=== PATIENT | female | born 1975 | race African-American/Black ===

== ENCOUNTER 2016-09-07 14:05 | Emergency (ER) | payer BC ==
[~2016-09-07] VITALS: Ht 157.5 cm; Wt 106.6 kg
[2016-09-07] MEDS ORDERED: ALBUTEROL SULFATE 2.5 MG/3 ML NEBU. NEB ONE (15:30)
--- NOTE | 2016-09-07 15:34 | PHYS DOC ---
Past Medical History Past Medical History: Hypertension Past Surgical History: Hysterectomy, Tonsillectomy, Tubal ligation Additional Information: nonsmoker Alcohol Use: Occasionally Drug Use: None Adult General Chief Complaint Chief Complaint: COUGH HPI HPI Patient is a 41 year old female who presents with productive cough and shortness of breath for 6 days. She also reports nasal drainage and myalgias. She denies fever, sore throat, or otalgia. She did not receive a flu shot this year. She denies any known sick contacts. Her PCP is Dr. Morales. Review of Systems Review of Systems Constitutional: Denies fever or chills. [] Eyes: Denies change in visual acuity, redness, or eye pain. [] HENT: Denies ear pain or sore throat. Reports nasal congestion. Respiratory: Reports productive cough and shortness of breath. Cardiovascular: Denies chest pain, palpitations or edema. [] Musculoskeletal: Denies back pain or joint pain. Reports diffuse myalgias. Integument: Denies rash or skin lesions. [] Neurologic: Denies headache, focal weakness or sensory changes. [] Current Medications Current Medications Current Medications Medications (Trade) Dose Ordered Sig/Felix Start Time Stop Time Status Last Admin Dose Admin Albuterol Sulfate (Ventolin Neb Soln) 2.5 mg 1X ONCE 09/07/16 15:30 09/07/16 15:31 DC 09/07/16 15:47 2.5 MG Allergies Allergies Allergies Coded Allergies Type Severity Reaction Last Updated Verified No Known Drug Allergies 09/07/16 No Physical Exam Physical Exam Constitutional: Well developed, well nourished, no acute distress, non-toxic appearance. [] HENT: Normocephalic, atraumatic, bilateral external ears normal, oropharynx moist, no oral exudates, nose normal. Bilateral TMs without erythema or bulging. There is no posterior pharyngeal erythema or tonsillar edema. Bilateral nasal turbinates are swollen and erythematous with purulent drainage. Eyes: PERRLA, EOMI, conjunctiva normal, no discharge. [] Neck: Normal range of motion, no tenderness, supple, no stridor. [] Cardiovascular: Heart rate regular rhythm, no murmur [] Lungs & Thorax: Bilateral breath sounds clear to auscultation without wheezes, rales, or rhonchi. Skin: Warm, dry, no erythema, no rash. [] Neurologic: Alert and oriented X 3, normal motor function, normal sensory function, no focal deficits noted. [] Psychologic: Affect normal, judgement normal, mood normal. [] Current Patient Data Vital Signs Vital Signs Date Time Temp Pulse Resp B/P Pulse Ox O2 Delivery O2 Flow Rate FiO2 09/07/16 15:47 97 Room Air 09/07/16 15:11 98.3 101 24 98.3 Lab Values Laboratory Tests Test 09/07/16 15:30 Influenza Type A Antigen Negative (NEGATIVE) Influenza Type B Antigen Negative (NEGATIVE) EKG EKG [] Radiology/Procedures Radiology/Procedures [] Course & Med Decision Making Course & Med Decision Making Pertinent Labs and Imaging studies reviewed. (See chart for details) [] Dragon Disclaimer Dragon Disclaimer This electronic medical record was generated, in whole or in part, using a voice recognition dictation system. Departure Departure Impression: Primary Impression: Bronchitis Disposition: HOME, SELF-CARE Condition: STABLE Referrals: TERESA WALLACE MD (PCP) Patient Instructions: Acute Bronchitis, [id number] Additional Instructions: Your flu swab today was negative. Your lungs were clear also. Please complete all the prescribed steroids, even if you are feeling better. Please use the prescribed inhaler as needed for cough or shortness of breath. Do not use more often than directed. Please follow-up with your primary care provider in the next 3-4 days. Return to emergency department if you have any new or concerning symptoms. Scripts Benzonatate 200 Mg Capsule1 Cap PO TID #30 CAP Prov:MEAGAN LEIVA 09/07/16 Prednisone 20 Mg [id number] Mg PO DAILY 5 Days Prov:MEAGAN LEIVA 09/07/16 Albuterol Sulfate (Proair Hfa Inhaler)8.5 Gm [id number] Puff INH Q4HRS PRN SHORTNESS OF BREATH #1 INHALER Prov:MEAGAN LEIVA 09/07/16 MEAGAN LEIVA Sep 07, 2016 15:34
[2016-09-07 16:13] LABS: OBC FLU VALID
[2016-09-07] MEDS ORDERED: PROAIR HFA8.5 GM INH (16:20)
[2016-09-07] MEDS ORDERED: PRED20TA PO (16:20)
[2016-09-07] MEDS ORDERED: BENZ200C39 PO (16:20)
[2016-09-07 16:32] VITALS: BP 193/87
== END 2016-09-07 16:33 | disposition home or self-care (01) ==
LOC: ER 14:05
DX: J40 Bronchitis, not specified as acute or chronic (principal); I10 Essential (primary) hypertension; Z90.710 Acquired absence of both cervix and uterus; Z98.51 Tubal ligation status
CPT/HCPCS: 87804; 94250; 94640; 99284

== ENCOUNTER 2017-12-29 11:13 | Emergency (ER) | payer OTHER | END 2017-12-29 12:31 | disposition home or self-care (01) | LOC: ER 12:31 | DX: H66.93 Otitis media, unspecified, bilateral (principal); R05 Cough; I10 Essential (primary) hypertension; Z98.51 Tubal ligation status; Z90.710 Acquired absence of both cervix and uterus | CPT/HCPCS: 99283 ==

== ENCOUNTER 2018-07-24 07:50 | Emergency (ER) | payer OTHER ==
[~2018-07-24] VITALS: Ht 160 cm; Wt 90.7 kg
[~2018-07-24 07:50] MED LIST: ALBU2.5V8 INH; AMOX875T PO; BENZ200C47 PO; PRED20TA PO; TRAM50TA PO
[2018-07-24] MEDS ORDERED: TETRACAINE 0.5% OPHTH SOLUTION 4ML BOTTLE. OS ONE (08:15)
[2018-07-24] MEDS ORDERED: FLUORESCEIN OPHTH TEST STRIP. OS ONE (08:15)
[2018-07-24] MEDS ORDERED: PROPARACAINE/FLUORESCEIN 0.5 ML OPHTH DROPS. OS ONE (08:15)
--- NOTE | 2018-07-24 08:24 | PHYS DOC ---
Past Medical History Past Medical History: Hypertension Past Surgical History: Hysterectomy, Tonsillectomy, Tubal ligation Alcohol Use: Occasionally Drug Use: None Adult General Chief Complaint Chief Complaint: EYE PROBLEMS HPI HPI Patient is a 43 year old female with complaining of left eye pain since yesterday as a constant pain with headache without change of vision. Patient complaining of September discharged this morning and redness of her eye. Patient states she used to wear contact lenses but did not use any contact lenses for several months. Patient denies injury, vomiting, history of the same problem. Review of Systems Review of Systems Constitutional: Denies fever or chills [] Eyes: Denies change in visual acuity, reports redness, eye pain [] HENT: Denies nasal congestion or sore throat [] Respiratory: Denies cough or shortness of breath [] Cardiovascular: No additional information not addressed in HPI [] GI: Denies abdominal pain, nausea, vomiting, bloody stools or diarrhea [] : Denies dysuria or hematuria [] Musculoskeletal: Denies back pain or joint pain [] Integument: Denies rash or skin lesions [] Neurologic: Denies headache, focal weakness or sensory changes [] Endocrine: Denies polyuria or polydipsia [] All other systems were reviewed and found to be within normal limits, except as documented in this note. Current Medications Current Medications Current Medications Medications (Trade) Dose Ordered Sig/Felix Start Time Stop Time Status Last Admin Dose Admin Clonidine HCl (Catapres) 0.1 mg 1X ONCE 07/24/18 09:00 07/24/18 09:01 DC 07/24/18 09:01 0.1 MG Fluorescein Sodium (Ful-Gloria) 1 strip 1X ONCE 07/24/18 08:15 07/24/18 08:16 UNV Proparacaine HCl/ Fluorescein Sodium (Flucaine Eye Drops) 1 drop 1X ONCE 07/24/18 08:15 07/24/18 08:16 DC 07/24/18 08:44 1 DROP Tetracaine HCl (Tetracaine) 1 drop 1X ONCE 07/24/18 08:15 07/24/18 08:16 UNV Allergies Allergies Allergies Coded Allergies Type Severity Reaction Last Updated Verified No Known Drug Allergies 07/24/18 No Physical Exam Physical Exam Constitutional: Well developed, well nourished, mild distress, non-toxic appearance. [] HENT: Normocephalic, atraumatic Eyes: PERRLA, EOMI, left conjunctival erythema with marked discharge, patient of 8 in left eye Neck: Normal range of motion, no tenderness, supple, no stridor. [] Cardiovascular:Heart rate regular rhythm, no murmur [] Lungs & Thorax: Bilateral breath sounds clear to auscultation [] Extremities: No tenderness, no cyanosis, no clubbing, ROM intact, no edema. [] Neurologic: Alert and oriented X 3, normal motor function, normal sensory function, no focal deficits noted. [] Psychologic: Affect normal, judgement normal, mood normal. [] Current Patient Data Vital Signs Vital Signs Date Time Temp Pulse Resp B/P (MAP) Pulse Ox O2 Delivery O2 Flow Rate FiO2 07/24/18 09:01 78 193/106 07/24/18 07:52 98.0 20 98 Room Air 98.0 EKG EKG [] Radiology/Procedures Radiology/Procedures [] Course & Med Decision Making Course & Med Decision Making Evaluation of patient in ER showed 43-year-old female patient with complaining of left eye pain since yesterday. Patient had unremarkable exam without uptake of fluorescein and normal pressure of left eye. Plan to discharge patient home with diagnose of left eye conjunctivitis. Patient had blood pressure of 190s at arrival to ER with history of hypertension and not taking medication for more than one year. Repeat blood pressure was still elevated and patient treated with clonidine and prescription for lisinopril was given. Dragon Disclaimer Dragon Disclaimer This electronic medical record was generated, in whole or in part, using a voice recognition dictation system. Departure Departure Impression: Primary Impression: Acute conjunctivitis, left eye Additional Impression: Uncontrolled hypertension Disposition: 01 HOME, SELF-CARE (at 0834) Condition: IMPROVED Referrals: NO PCP (PCP) Patient Instructions: Bacterial Conjunctivitis, Form - Blood Pressure Record Sheet, How to Take Your Blood Pressure, [id number], Managing Your High Blood Pressure Additional Instructions: Follow-up with donor services specialist in 2 days Return to ER if not getting better Follow-up with your primary care physician in 2 or 3 days regarding elevation of blood pressure Scripts Lisinopril (LISINOPRIL) 10 Mg Tablet 1 TAB PO DAILY, #30 TAB 0 Refills Prov: LESVIA BRIAN MD 07/24/18 Tramadol Hcl (ULTRAM) 50 Mg Tablet 50 MG PO Q6HRS PRN for PAIN, #14 TAB 0 Refills Prov: LESVIA BRIAN MD 07/24/18 Igor/Polymyx B Sulf/Dexameth (MAXITROL EYE DROPS) 5 Ml Drops.susp 2 DROP OS QID for 7 Days, #5 ML Prov: LESVIA BRIAN MD 07/24/18 Problem Qualifiers LESVIA BRIAN MD Jul 24, 2018 08:24
[2018-07-24] MEDS ORDERED: NEO/5DRO OS (08:37)
[2018-07-24] MEDS ORDERED: TRAM-48 PO (08:45)
[2018-07-24] MEDS ORDERED: LISI10TA2 PO (08:57)
[2018-07-24] MEDS ORDERED: cloNIDine HCL 0.1 MG TABLET PO ONE (09:00)
[2018-07-24 09:01] VITALS: BP 193/106
== END 2018-07-24 09:05 | disposition home or self-care (01) ==
LOC: ER 07:50
DX: H10.32 Unspecified acute conjunctivitis, left eye (principal); I10 Essential (primary) hypertension; Z90.710 Acquired absence of both cervix and uterus
CPT/HCPCS: 99283

== ENCOUNTER 2018-11-25 08:03 | Emergency (ER) | payer OTHER ==
[~2018-11-25] VITALS: Ht 160 cm; Wt 90.7 kg
[~2018-11-25 08:03] MED LIST changes: +LISI10TA2 PO; +NEO/5DRO OS; +TRAM-48 PO
[2018-11-25] MEDS ORDERED: ONDANSETRON PF 4 MG/2 ML VIAL. IV ONE (08:30)
[2018-11-25] MEDS ORDERED: hydrALAZINE 20 MG/ML VIAL. IVP ONE (08:30)
[2018-11-25] MEDS ORDERED: IV NORMAL SALINE 1000ML BAG 1,000 ML IV ONE (08:30)
--- NOTE | 2018-11-25 08:38 | PHYS DOC ---
Past Medical History Past Medical History: Hypertension Past Surgical History: Hysterectomy, Tonsillectomy, Tubal ligation Alcohol Use: Occasionally Drug Use: None Adult General Chief Complaint Chief Complaint: SORE THROAT HPI HPI Patient is a 43 year old F who presents with sore throat, body aches and vomiting. Pt brings with her a red cup full of vomit. She states that the vomiting has been on ongoing problem for several months and her doctor is not sure what is causing it. She has had a prior hysterectomy. She denies abdominal pain, except for when she is vomiting and it hurts in her epigastric region. Pt is noted to be very hypertensive on arrival, as well as tachycardic. She did not take her blood pressure medicine yet today. Hydralazine was ordered but when nurse went to give it, pt's BP was greatly improved so it was held. Review of Systems Review of Systems Constitutional: Reports chills HENT: Reports nasal congestion and sore throat Respiratory: Denies cough or shortness of breath Cardiovascular: Denies chest pain GI: Denies abdominal pain. Reports nausea and vomiting. Musculoskeletal: Denies back pain or joint pain. Reports myalgias. Integument: Denies rash or skin lesions Neurologic: Denies headache, focal weakness or sensory changes All other systems were reviewed and found to be within normal limits, except as documented in this note. Current Medications Current Medications Current Medications Medications (Trade) Dose Ordered Sig/Felix Start Time Stop Time Status Last Admin Dose Admin Hydralazine HCl (Apresoline Inj) 10 mg 1X ONCE 11/25/18 08:30 11/25/18 09:06 DC Ondansetron HCl (Zofran) 4 mg 1X ONCE 11/25/18 08:30 11/25/18 08:31 DC 11/25/18 08:46 4 MG Sodium Chloride 1,000 ml @ 1,000 mls/hr 1X ONCE 11/25/18 08:30 11/25/18 09:29 DC 11/25/18 08:46 1,000 MLS/HR Allergies Allergies Allergies Coded Allergies Type Severity Reaction Last Updated Verified No Known Drug Allergies 07/24/18 No Physical Exam Physical Exam Constitutional: Well developed, well nourished, no acute distress, non-toxic appearance. HENT: Normocephalic, atraumatic, bilateral external ears normal. Oropharynx is erythematous and tender. Clear nasal congestion. Eyes: PERRLA, EOMI, conjunctiva normal, no discharge. Neck: Normal range of motion, no tenderness, supple, no stridor. Cardiovascular:Heart rate regular rhythm, no murmur Lungs & Thorax: Bilateral breath sounds clear to auscultation Abdomen: Bowel sounds normal, soft, no tenderness, no masses, no pulsatile masses. Skin: Warm, dry, no erythema, no rash. Back: No tenderness, no CVA tenderness. Extremities: No tenderness, no cyanosis, no clubbing, ROM intact, no edema. Neurologic: Alert and oriented X 3, normal motor function, normal sensory function, no focal deficits noted. Psychologic: Affect normal, judgement normal, mood normal. Current Patient Data Vital Signs Vital Signs Date Time Temp Pulse Resp B/P (MAP) Pulse Ox O2 Delivery O2 Flow Rate FiO2 11/25/18 10:20 102 20 140/74 (96) 96 Room Air 11/25/18 08:26 98.1 98.1 Lab Values Laboratory Tests Test 11/25/18 08:14 11/25/18 08:45 Group A Streptococcus Rapid Positive (NEGATIVE) White Blood Count 13.9 x10^3/uL (4.0-11.0) H Red Blood Count 4.29 x10^6/uL (3.50-5.40) Hemoglobin 13.8 g/dL (12.0-15.5) Hematocrit 40.4 % (36.0-47.0) Mean Corpuscular Volume 94 fL (79-100) Mean Corpuscular Hemoglobin 32 pg (25-35) Mean Corpuscular Hemoglobin Concent 34 g/dL (31-37) Red Cell Distribution Width 12.8 % (11.5-14.5) Platelet Count 294 x10^3/uL (140-400) Neutrophils (%) (Auto) 80 % (31-73) H Lymphocytes (%) (Auto) 10 % (24-48) L Monocytes (%) (Auto) 8 % (0-9) Eosinophils (%) (Auto) 2 % (0-3) Basophils (%) (Auto) 0 % (0-3) Neutrophils # (Auto) 11.1 x10^3uL (1.8-7.7) H Lymphocytes # (Auto) 1.4 x10^3/uL (1.0-4.8) Monocytes # (Auto) 1.0 x10^3/uL (0.0-1.1) Eosinophils # (Auto) 0.3 x10^3/uL (0.0-0.7) Basophils # (Auto) 0.0 x10^3/uL (0.0-0.2) Sodium Level 138 mmol/L (136-145) Potassium Level 3.5 mmol/L (3.5-5.1) Chloride Level 101 mmol/L (98-107) Carbon Dioxide Level 28 mmol/L (21-32) Anion Gap 9 (6-14) Blood Urea Nitrogen 10 mg/dL (7-20) Creatinine 1.0 mg/dL (0.6-1.0) Estimated GFR (Cockcroft-Gault) 73.2 BUN/Creatinine Ratio 10 (6-20) Glucose Level 119 mg/dL (70-99) H Calcium Level 9.2 mg/dL (8.5-10.1) Total Bilirubin 0.8 mg/dL (0.2-1.0) Aspartate Amino Transferase (AST) 41 U/L (15-37) H Alanine Aminotransferase (ALT) 56 U/L (14-59) Alkaline Phosphatase 86 U/L (46-116) Total Protein 8.1 g/dL (6.4-8.2) Albumin 3.3 g/dL (3.4-5.0) L Albumin/Globulin Ratio 0.7 (1.0-1.7) L Lipase 41 U/L (73-393) L Heterophil Agglutinins Negative (NEGATIVE) Laboratory Tests 11/25/18 08:45 Laboratory Tests 11/25/18 08:45 EKG EKG [] Radiology/Procedures Radiology/Procedures [] Course & Med Decision Making Course & Med Decision Making Pertinent Labs and Imaging studies reviewed. (See chart for details) Pt had labs done due to vomiting and tachycardia. IV fluids and zofran given and pt feeling better. Her pulse down and blood pressure came down without interve ntion. Nurse did bedside rapid strep which was reported as positive. It was then sent to lab and they reported it as negative. ??? Pt has leukocytosis and red inflamed oropharynx so will treat as strep at this time. I have also recommended close f/u with GI since she is reporting frequent vomiting even before becoming ill. Name provided for Dr. Brian. Pt to return if symptoms worsen at anytime. Dragon Disclaimer Dragon Disclaimer This electronic medical record was generated, in whole or in part, using a voice recognition dictation system. Departure Departure Impression: Primary Impression: Strep throat Additional Impression: Vomiting Disposition: HOME, SELF-CARE Condition: IMPROVED Referrals: NO PCP (PCP) COSMO BRIAN MD Patient Instructions: Nausea and Vomiting, [id number], Strep Throat, [id number] Additional Instructions: Push fluids and rest. With reports of several months of daily vomiting, you need to be see by a GI d octor. Dr. Brian is listed and is a local GI doctor. Scripts Ondansetron Hcl (ZOFRAN) 4 Mg Tablet 1 TAB PO Q6HRS, #20 TAB Prov: MATEO KENDRICK 11/25/18 Amoxicillin (AMOXICILLIN) 500 Mg Capsule 1 CAP PO TID, #30 CAP Prov: MATEO KENDRICK 11/25/18 Problem Qualifiers MATEO KENDRICK Nov 25, 2018 08:38
[2018-11-25 09:02] LABS: BASO % 0 % (0-3); EOS # 0.3 x10^3/uL (0.0-0.7); EOS % 2 % (0-3); HEMATOCRIT 40.4 % (36.0-47.0); HEMOGLOBIN 13.8 g/dL (12.0-15.5); LYMPH # 1.4 x10^3/uL (1.0-4.8); LYMPH % 10 % (24-48); MEAN CORPUSCULAR HEMOGLOBIN 32 pg (25-35); MEAN CORPUSCULAR HGB CONC 34 g/dL (31-37); MEAN CORPUSCULAR VOLUME 94 fL (79-100); MONO % 8 % (0-9); NEUT # 11.1 x10^3uL (1.8-7.7); NEUT % 80 % (31-73); PLATELET COUNT 294 x10^3/uL (140-400); RED BLOOD COUNT 4.29 x10^6/uL (3.50-5.40); RED CELL DISTRIBUTION WIDTH 12.8 % (11.5-14.5); WHITE BLOOD COUNT 13.9 x10^3/uL (4.0-11.0)
[2018-11-25 09:11] LABS: CALCIUM 9.2 mg/dL (8.5-10.1); GFR 73.2; POTASSIUM 3.5 mmol/L (3.5-5.1)
[2018-11-25 09:17] LABS: ALBUMIN 3.3 g/dL (3.4-5.0); ALBUMIN/GLOBULIN RATIO 0.7 (1.0-1.7); TOTAL BILIRUBIN 0.8 mg/dL (0.2-1.0); TOTAL PROTEIN 8.1 g/dL (6.4-8.2)
[2018-11-25 09:20] LABS: MONONUCLEOSIS PATIENT NEGATIVE (NEGATIVE)
[2018-11-25] MEDS ORDERED: AMOX500C PO (09:59)
[2018-11-25] MEDS ORDERED: ONDA4TAB7 PO (09:59)
[2018-11-25 10:20] VITALS: BP 140/74
== END 2018-11-25 10:22 | disposition home or self-care (01) ==
LOC: ER 08:03
DX: J02.0 Streptococcal pharyngitis (principal); B95.5 Unspecified streptococcus as the cause of diseases classified elsewhere; R11.2 Nausea with vomiting, unspecified; R00.0 Tachycardia, unspecified; M79.18 Myalgia, other site; I10 Essential (primary) hypertension; Z90.89 Acquired absence of other organs; Z98.51 Tubal ligation status; Z90.710 Acquired absence of both cervix and uterus
CPT/HCPCS: 36415; 80053; 83690; 85025; 86308; 87880; 96361; 96374; 99284; J2405; J7030

== ENCOUNTER 2019-03-20 15:45 | Inpatient (IN) | payer OTHER ==
[~2019-03-20] VITALS: Ht 157.5 cm; Wt 139.0 kg
[~2019-03-20 15:45] MED LIST changes: +AMOX500C PO; +ONDA4TAB7 PO
[2019-03-20] MEDS ORDERED: ALBUTEROL SULFATE 2.5 MG/3 ML NEBU. NEB ONE (16:15)
[2019-03-20] MEDS ORDERED: PROCHLORPERAZINE 10 MG/2 ML VIAL. IV ONE (16:15)
[2019-03-20] MEDS ORDERED: KETOROLAC 30 MG/ML VIAL. IV ONE (16:15)
--- NOTE | 2019-03-20 16:15 | PHYS DOC ---
Past Medical History Past Medical History: Hypertension (YAMILETH DIAZ APRN) Past Surgical History: Hysterectomy, Tonsillectomy, Tubal ligation (YAMILETH DIAZ APRN) Alcohol Use: Occasionally Drug Use: None (YAMILETH DIAZ APRN) Adult General Chief Complaint Chief Complaint: SHORTNESS OF BREATH HPI HPI Patient is a 43 year old female who presents with 1 week of shortness of breat h, left chest heaviness and tightness with slight sharpness felt in the left chest with a deep breath. Patient states she also has blurriness in her vision, dizziness and the worse headache she's ever felt. Patient states that she tried taking Aleve but is not helping. Patient states she took a breathing treatment at home with albuterol and is feeling no better. Patient has not recently been on steroids. Patient states she was on amoxicillin 3 months ago for bronchitis and she's had bronchitis couple times but states this feels different. Ambulatory with a steady gait. The only medicine she is on his lisinopril for hypertension. She rates her headache pain an 8 out of 10. (YAMILETH DIAZ APRN) Review of Systems Review of Systems Constitutional: Denies fever or chills [] Eyes: Denies change in visual acuity, redness, or eye pain. Blurred vision[] HENT: Denies nasal congestion or sore throat [] Respiratory: Denies cough or shortness of breath [] Cardiovascular: Left chest sharpness with inspiration, heaviness, tightness GI: Denies abdominal pain, nausea, vomiting, bloody stools or diarrhea [] : Denies dysuria or hematuria [] Musculoskeletal: Denies back pain or joint pain [] Integument: Denies rash or skin lesions [] Neurologic: headache, dizziness, focal weakness or sensory changes [] Endocrine: Denies polyuria or polydipsia [] All other systems were reviewed and found to be within normal limits, except as documented in this note. (YAMILETH DIAZ APRN) Current Medications Current Medications Current Medications Medications (Trade) Dose Ordered Sig/Felix Start Time Stop Time Status Last Admin Dose Admin Albuterol Sulfate (Ventolin Neb Soln) 2.5 mg 1X ONCE 03/20/19 16:15 03/20/19 16:16 DC 03/20/19 16:29 2.5 MG Aspirin ([place] Aspirin) 325 mg 1X ONCE 03/20/19 17:45 03/20/19 17:46 DC 03/20/19 18:01 325 MG Ketorolac Tromethamine (Toradol 30mg Vial) 30 mg 1X ONCE 03/20/19 16:15 03/20/19 16:16 DC 03/20/19 17:06 30 MG Prochlorperazine Edisylate (Compazine) 10 mg 1X ONCE 03/20/19 16:15 03/20/19 16:16 DC 03/20/19 17:06 10 MG Sodium Chloride 1,000 ml @ 1,000 mls/hr 1X ONCE 03/20/19 17:30 03/20/19 18:29 DC 03/20/19 17:53 1,000 MLS/HR (BRUCE CASTRO MD) Allergies Allergies Allergies Coded Allergies Type Severity Reaction Last Updated Verified No Known Drug Allergies 07/24/18 No (BRUCE CASTRO MD) Physical Exam Physical Exam Constitutional: Well developed, well nourished, no acute distress, non-toxic appearance. [] Eyes: PERRLA, EOMI, conjunctiva normal, no discharge. [] Cardiovascular:Heart rate regular rhythm, no murmur, hypertensive [] Lungs & Thorax: Bilateral breath sounds clear to auscultation [] Abdomen: Bowel sounds normal, soft, no tenderness, no masses, no pulsatile masses. [] Skin: Warm, dry, no erythema, no rash. [] Back: No tenderness, no CVA tenderness. [] Extremities: No tenderness, no cyanosis, no clubbing, ROM intact, no edema. [] Neurologic: Alert and oriented X 3, normal motor function, normal sensory function, no focal deficits noted. [] Psychologic: Affect normal, judgement normal, mood normal. [] (YAMILETH DIAZ APRN) Current Patient Data Vital Signs Vital Signs Date Time Temp Pulse Resp B/P (MAP) Pulse Ox O2 Delivery O2 Flow Rate FiO2 03/20/19 19:18 100 24 215/95 (135) 99 Room Air 03/20/19 15:49 98.3 98.3 (BRUCE CASTRO MD) Lab Values Laboratory Tests Test 03/20/19 15:52 03/20/19 15:57 03/20/19 16:45 03/20/19 18:38 Urine Collection Type Unknown Urine Color Yellow Urine Clarity Clear Urine pH 5.0 Urine Specific [place] 1.025 Urine Protein Negative mg/dL (NEG-TRACE) Urine Glucose (UA) Negative mg/dL (NEG) Urine Ketones (Stick) Negative mg/dL (NEG) Urine Blood Trace (NEG) Urine Nitrite Negative (NEG) Urine Bilirubin Negative (NEG) Urine Urobilinogen Dipstick 1.0 mg/dL (0.2 mg/dL) Urine Leukocyte Esterase Negative (NEG) Urine RBC 3-5 /HPF (0-2) Urine WBC 1-4 /HPF (0-4) Urine Squamous Epithelial Cells Many /LPF Urine Bacteria Moderate /HPF (0-FEW) Urine Mucus Marked /LPF Urine Opiates Screen Neg (NEG) Urine Methadone Screen Neg (NEG) Urine Barbiturates Neg (NEG) Urine Phencyclidine Screen Neg (NEG) Urine Amphetamine/Methamphetamine Neg (NEG) Urine Benzodiazepines Screen Neg (NEG) Urine Cocaine Screen Neg (NEG) Urine Cannabinoids Screen Neg (NEG) Urine Ethyl Alcohol Neg (NEG) POC Urine HCG, Qualitative Hcg negative (Negative) White Blood Count 13.0 x10^3/uL (4.0-11.0) H Red Blood Count 4.48 x10^6/uL (3.50-5.40) Hemoglobin 14.4 g/dL (12.0-15.5) Hematocrit 41.7 % (36.0-47.0) Mean Corpuscular Volume 93 fL (79-100) Mean Corpuscular Hemoglobin 32 pg (25-35) Mean Corpuscular Hemoglobin Concent 34 g/dL (31-37) Red Cell Distribution Width 12.9 % (11.5-14.5) Platelet Count 346 x10^3/uL (140-400) Neutrophils (%) (Auto) 58 % (31-73) Lymphocytes (%) (Auto) 33 % (24-48) Monocytes (%) (Auto) 8 % (0-9) Eosinophils (%) (Auto) 1 % (0-3) Basophils (%) (Auto) 0 % (0-3) Neutrophils # (Auto) 7.6 x10^3/uL (1.8-7.7) Lymphocytes # (Auto) 4.2 x10^3/uL (1.0-4.8) Monocytes # (Auto) 1.1 x10^3/uL (0.0-1.1) Eosinophils # (Auto) 0.1 x10^3/uL (0.0-0.7) Basophils # (Auto) 0.0 x10^3/uL (0.0-0.2) D-Dimer (Bianka) 0.39 ug/mlFEU (0.00-0.50) Sodium Level 141 mmol/L (136-145) Potassium Level 3.9 mmol/L (3.5-5.1) Chloride Level 102 mmol/L (98-107) Carbon Dioxide Level 28 mmol/L (21-32) Anion Gap 11 (6-14) Blood Urea Nitrogen 15 mg/dL (7-20) Creatinine 1.1 mg/dL (0.6-1.0) H Estimated GFR (Cockcroft-Gault) 65.6 BUN/Creatinine Ratio 14 (6-20) Glucose Level 117 mg/dL (70-99) H Calcium Level 9.2 mg/dL (8.5-10.1) Total Bilirubin 0.3 mg/dL (0.2-1.0) Aspartate Amino Transferase (AST) 13 U/L (15-37) L Alanine Aminotransferase (ALT) 24 U/L (14-59) Alkaline Phosphatase 62 U/L (46-116) Troponin I Quantitative < 0.017 ng/mL (0.000-0.055) < 0.017 ng/mL (0.000-0.055) Total Protein 7.8 g/dL (6.4-8.2) Albumin 3.5 g/dL (3.4-5.0) Albumin/Globulin Ratio 0.8 (1.0-1.7) L Laboratory Tests 03/20/19 16:45 Laboratory Tests 03/20/19 16:45 (BRUCE CASTRO MD) EKG EKG SINUS TACHY AND NO STEMI[] Interpretation Time: [address] MINOR (YAMILETH DIAZ APRN) Radiology/Procedures Radiology/Procedures [] (YAMILETH DIAZ APRN) Impressions: [facility] [address] [place], [place] [id number] IMAGING REPORT Signed PATIENT: STEVE LINARES ACCOUNT: [id number] : 1975 LOCATION: ER AGE: 43 SEX: F EXAM STATUS: REG ER ORD. PHYSICIAN: YAMILETH DIAZ APRN REASON: soa PROCEDURE: CHEST PA & LATERAL PA and lateral views of the chest. Comparison: None. Indication: Shortness of air Findings: The heart size is enlarged. No pneumothorax or effusion. No air space or interstitial disease. The bony structures are intact. Impression: 1. No acute cardiopulmonary process. 2. Cardiomegaly. Electronically signed by: Demarco Bradford MD (03/20/2019 5:11 PM) [facility] DICTATED and SIGNED BY: DEMARCO BRADFORD MD DATE: 03/20/19 171 [facility] [address] [place] [address] IMAGING REPORT Signed PATIENT: STEVE LINARES ACCOUNT: [id number] : 1975 LOCATION: ER AGE: 43 SEX: F EXAM STATUS: REG ER ORD. PHYSICIAN: YAMILETH DIAZ APRN REASON: LIGHTHEADED /soa PROCEDURE: CT HEAD WO CONTRAST Exam: CT head INDICATION: Lightheadedness TECHNIQUE: Sequential axial images through the head were obtained without the administration of IV contrast. Comparisons: None FINDINGS: No focal parenchymal lesion or hemorrhage is identified. There is no midline shift or sulcal effacement. No acute vascular territory infarction is identified. Alford-white distinction is preserved. The ventricular system is within normal limits without compression hydrocephalus. The basal cisterns are well maintained. The visualized portions of the paranasal sinuses and mastoid air cells are well-pneumatized. No acute fractures. IMPRESSION: No acute intracranial abnormality. Exposure: One or more of the following in the visualized dose reduction techniques were utilized for this examination: 1. Automated exposure control 2. Adjustment of the MA and/or KV according to patient size Use of iterative of reconstructive technique Electronically signed by: Ashvin Musa MD (03/20/2019 5:33 PM) [facility] DICTATED and SIGNED BY: ASHVIN MUSA MD DATE: 03/20/19 5061 (YAMILETH DIAZ APRN) Course & Med Decision Making Course & Med Decision Making Patient is a 43 year old female who presents with 1 week of shortness of breath, left chest heaviness and tightness with slight sharpness felt in the left chest with a deep breath. Patient states she also has blurriness in her vision, dizziness and the worse headache she's ever felt. Patient states that she tried taking Aleve but is not helping. Patient states she took a breathing treatment at home with albuterol and is feeling no better. Patient has not recently been on steroids. Patient states she was on amoxicillin 3 months ago for bronchitis and she's had bronchitis couple times but states this feels different. Ambulatory with a steady gait. The only medicine she is on his lisinopril for hypertension. She rates her headache pain an 8 out of 10. Speaks in full clear sentences. Skin is pink warm and dry. PERRLA. Denies numbness or tingling, nausea, vomiting, diarrhea, fever, neck pain, weakness, syncope, falling or any injuries or diaphoresis. Patient states she does not smoke and only drinks occasionally and does no drugs. Patient states the only health history she has is hypertension of which she takes lisinopril for. Patient states she takes lisinopril once a day she did take it this morning. Patient is hypertensive here in the ED. no calf tenderness or extremity edema. Lungs are clear to auscultation all lobes. CT chest shows 1. No acute cardiopulmonary process. 2. Cardiomegaly. Blood work unremarkable. Patient states after breathing treatment her soa is better. Patient states after the Compazine and Toradol that the headache is down to a 6. Patient states that the Compazine is making her sleepy. Patient states she is still having chest pain. Patients blood pressure has some down to 170's. Vital signs remain normal. Respirations 20. Denies any new symptoms. CT shows no acute findings. I have discussed this patient with Dr. Minor and he states to repeat the troponin if it's negative can send her home. I have spoken to Dr. Hilton who states to repeat the troponin and if still negative to return follow up with her in clinic. Second EKG shows a slight change with nonspecific flattening in V3. EKG read and compared to first EKG by Dr Castro. Troponin remains negative. Patient's blood pressure however has jumped back up into 205 over 100s. Patient currently doesn't have any chest pain but has had it intermittently throughout her stay today. Patient continues to have headache at a 6 out of 10. As spoken to Dr. Castro concerning this patient and he has spoken to the patient himself. We agree the patient should be admitted for serial troponins and a cardiology consult. Patient also agrees to admission. I have spoken to Dr Hilton and patient to be admitted to the hospital. Cardiology is consulted. (YAMILETH DIAZ APRN) Course & Med Decision Making ARNAUD: I SAW THE PATIENT. RECURRENT PAIN IN ED, TIGHTNESS SQUEEZING COMING AND GOING. BP 203 ON MY EVAL. TROP NEG. EKG SECOND ONE LOOKS A LITTLE DIFFERENT. I RECOMMEND ADMIT. PT OBESE, POORLY CONTROLLED BP HEART SCORE AT LEAST A TWO. (BRUCE CASTRO MD) Dragon Disclaimer Dragon Disclaimer This electronic medical record was generated, in whole or in part, using a voice recognition dictation system. (YAMILETH DIAZ APRN) The HEART Score for CP Pts HEART Score for Chest Pain: HEART Score for Chest Pain Response (Comments) Value History Moderately Suspicious 1 ECG Normal 0 Age < 45 0 Risk Factors 1 or 2 Risk Factors 1 Troponin < Normal Limit 0 Total 2 Risk Factors: Risk Factors: DM, Current or recent (<one month) smoker, HTN, HLP, family history of CAD, obesity. Risk Scores: Score 0 - 3: 2.5% MACE over next 6 weeks - Discharge Home Score 4 - 6: 20.3% MACE over next 6 weeks - Admit for Clinical Observation Score 7 - 10: 72.7% MACE over next 6 weeks - Early Invasive Strategies (YAMILETH DIAZ APRN) NIHSS Stroke Scale NIH Stroke Scale: NIH Stroke Scale Response (Comments) Value Level of Consciousness: 0 Alert/Responsive 0 LOC Questions: 0 Answers both correctly 0 LOC Commands: 0 Performs both tasks 0 Best Gaze: 0 Normal 0 Visual: 0 No visual loss 0 Facial Palsy: 0 Normal, symmetrical 0 Motor - Left Arm 0 No drift 0 Motor - Right Arm 0 No drift 0 Motor - Left Leg 0 No drift 0 Motor: Right Leg 0 No drift 0 Limb Ataxia: 0 Absent 0 Sensory: 0 No loss 0 Best Language: 0 Normal 0 Dysathria: 0 Normal 0 Extinction and Inattention: 0 Normal 0 Total 0 Departure Departure Impression: Primary Impression: Chest pain Additional Impression: Hypertension Disposition: 09 ADMITTED INPATIENT Admitting Physician: Gloria Vargas (YAMILETH DIAZ APRN) Condition: STABLE Referrals: NO PCP (PCP) Attending Signature Attending Signature I have reviewed the PA/SAND CLEANING MACHINE OPERATOR's note and plan of care. I was available for consultation as needed during the patient's visit in the emergency department. I agree with the clinical impression, plan, and disposition. (KENYA MINOR DO) Attending Signature I have participated in the care of this patient and I have reviewed and agree with all pertinent clinical information above including history, exam, and recommendations. (BRUCE CASTRO MD) Problem Qualifiers Primary Impression: Chest pain Chest pain type: unspecified Qualified Codes: R07.9 - Chest pain, unspecified Additional Impression: Hypertension Hypertension type: essential hypertension Qualified Codes: I10 - Essential (primary) hypertension YAMILETH DIAZ APRN Mar 20, 2019 16:14 BRUCE CASTRO MD Mar 20, 2019 19:20 KENYA MINOR DO Mar 21, 2019 04:05
[2019-03-20 16:18] LABS: BILIRUBIN,URINE NEGATIVE (NEG); CLARITY,URINE CLEAR; COLOR,URINE YELLOW; NITRITE,URINE NEGATIVE (NEG); PROTEIN,URINE NEGATIVE (NEG-TRACE)
[2019-03-20 16:24] LABS: BARBITURATES NEG (NEG); BENZODIAZEPINES NEG (NEG); CANNABINOIDS NEG (NEG); COCAINE NEG (NEG); METHADONE NEG (NEG); OPIATES NEG (NEG); PHENCYCLIDINE NEG (NEG)
[2019-03-20 16:25] LABS: AMPHETAMINE/METHAMPHETAMINE NEG (NEG)
[2019-03-20 16:26] LABS: BACTERIA,URINE MODERATE /HPF (0-FEW); SQUAMOUS EPITHELIAL CELL,UR MANY /LPF
[2019-03-20 16:57] LABS: BASO % 0 % (0-3); EOS # 0.1 x10^3/uL (0.0-0.7); EOS % 1 % (0-3); HEMATOCRIT 41.7 % (36.0-47.0); HEMOGLOBIN 14.4 g/dL (12.0-15.5); LYMPH # 4.2 x10^3/uL (1.0-4.8); LYMPH % 33 % (24-48); MEAN CORPUSCULAR HEMOGLOBIN 32 pg (25-35); MEAN CORPUSCULAR HGB CONC 34 g/dL (31-37); MEAN CORPUSCULAR VOLUME 93 fL (79-100); MONO # 1.1 x10^3/uL (0.0-1.1); MONO % 8 % (0-9); NEUT # 7.6 x10^3/uL (1.8-7.7); NEUT % 58 % (31-73); PLATELET COUNT 346 x10^3/uL (140-400); RED BLOOD COUNT 4.48 x10^6/uL (3.50-5.40); RED CELL DISTRIBUTION WIDTH 12.9 % (11.5-14.5)
--- NOTE | 2019-03-20 17:13 | RAD ---
PA and lateral views of the chest. Comparison: None. Indication: Shortness of air Findings: The heart size is enlarged. No pneumothorax or effusion. No air space or interstitial disease. The bony structures are intact. Impression: 1. No acute cardiopulmonary process. 2. Cardiomegaly. Electronically signed by: Demarco Bradford MD (03/20/2019 5:11 PM) [facility]
[2019-03-20 17:15] LABS: CALCIUM 9.2 mg/dL (8.5-10.1); CREATININE 1.1 mg/dL (0.6-1.0); GFR 65.6; POTASSIUM 3.9 mmol/L (3.5-5.1)
[2019-03-20 17:19] LABS: ALBUMIN 3.5 g/dL (3.4-5.0); ALBUMIN/GLOBULIN RATIO 0.8 (1.0-1.7); TOTAL BILIRUBIN 0.3 mg/dL (0.2-1.0); TOTAL PROTEIN 7.8 g/dL (6.4-8.2)
[2019-03-20] MEDS ORDERED: IV NORMAL SALINE 1000ML BAG 1,000 ML IV ONE (17:30)
--- NOTE | 2019-03-20 17:36 | RAD ---
Exam: CT head INDICATION: Lightheadedness TECHNIQUE: Sequential axial images through the head were obtained without the administration of IV contrast. Comparisons: None FINDINGS: No focal parenchymal lesion or hemorrhage is identified. There is no midline shift or sulcal effacement. No acute vascular territory infarction is identified. Alford-white distinction is preserved. The ventricular system is within normal limits without compression hydrocephalus. The basal cisterns are well maintained. The visualized portions of the paranasal sinuses and mastoid air cells are well-pneumatized. No acute fractures. IMPRESSION: No acute intracranial abnormality. Exposure: One or more of the following in the visualized dose reduction techniques were utilized for this examination: 1. Automated exposure control 2. Adjustment of the MA and/or KV according to patient size Use of iterative of reconstructive technique Electronically signed by: Ashvin Gloria MD (03/20/2019 5:33 PM) [facility]
[2019-03-20] MEDS ORDERED: ASPIRIN 325 MG TABLET PO ONE (17:45)
[2019-03-20] MEDS ORDERED: HYDR-2761 PO (18:03)
[2019-03-20] MEDS ORDERED: METH4TAB2 PO (18:03)
[2019-03-20] MEDS ORDERED: ALBU2.5V8 INH (18:03)
[2019-03-20] MEDS ORDERED: NITROGLYCERIN OINT 1 GM PACKET. TP ONE (19:30)
[2019-03-20] MEDS ORDERED: ONDANSETRON PF 4 MG/2 ML VIAL. IV PRN (19:45)
[2019-03-20] MEDS ORDERED: ACETAMINOPHEN 325 MG TABLET. PO PRN (19:45)
[2019-03-20] MEDS ORDERED: fentaNYL PF VIAL 100 MCG/2 ML VIAL IV PRN (19:45)
[2019-03-20] MEDS: IPRATRPIUM/ALBUTEROL 0.5/2.5MG 3 ML NEBU. NEB SCH (20:00)
[2019-03-20 20:24] VITALS: BP 197/105
[2019-03-20 22:40] VITALS: BP 144/69
--- NOTE | 2019-03-20 23:27 | NUR ---
Patient arrived to unit at 2018 accompanied by ED nurse and pt sister. No complaints of pain at this time. VS stable, assessment complete. Resting comfortably on RA. Bed in Low locked position, Call light in reach. Will continue to monitor.
[2019-03-21] VITALS (8 sets, daily range): BP systolic 118–196; BP diastolic 68–93
[2019-03-21] MEDS: IPRATRPIUM/ALBUTEROL 0.5/2.5MG 3 ML NEBU. NEB SCH ×2 (08:05→12:12)
[2019-03-21] MEDS ORDERED: TRIA1TAB3 PO (12:31)
--- NOTE | 2019-03-21 12:36 | PDOC ---
PROGRESS NOTES Subjective Subjective Patient reports chest pain has resolved, feels OK. Objective Objective Vital Signs Date Time Temp Pulse Resp B/P (MAP) Pulse Ox O2 Delivery O2 Flow Rate FiO2 03/21/19 12:13 Room Air 03/21/19 11:00 98.2 108 18 187/85 (119) 95 98.2 Intake and Output 03/21/19 07:00 Intake Total 120 ml Balance 120 ml Intake Oral 120 ml Physical Exam Abdomen: Normal bowel sounds, Soft, No tenderness Heart: Regular rate Extremities: No edema General: Alert, Oriented X3, No acute distress Lungs: Clear to auscultation Assessment Assessment Problems Medical Problems: (1) Chest pain Status: Acute (2) Chest tightness Status: Acute (3) Headache Status: Acute (4) Hypertension Status: Acute (5) Shortness of breath Status: Acute Plan Plan of Care 1. Chest pain - resolved. Three troponins are WNL. Apparently 2nd EKG looked somewhat different and patient was admitted for observation. Await Cardiology consult. Hope patient can be discharged later today with out patient imaging if needed. 2. HTN - not well controlled with her home medication. Patient was long overdue follow up in our office but has OV with me on Saturday. Continue Triamt/HCTZ and add Losartan, follow as out patient. 3. hyperlipidemia - lipids elevated on office lab. Start statin. 4. hyperglycemia - A1C pending. Watch diet. Comment Review of Relevant I have reviewed the following items urszula (where applicable) has been applied. Labs Laboratory Tests Test 03/20/19 15:52 03/20/19 15:57 03/20/19 16:45 03/20/19 18:38 Urine Collection Type Unknown Urine Color Yellow Urine Clarity Clear Urine pH 5.0 Urine Specific [place] 1.025 Urine Protein Negative mg/dL (NEG-TRACE) Urine Glucose (UA) Negative mg/dL (NEG) Urine Ketones (Stick) Negative mg/dL (NEG) Urine Blood Trace (NEG) Urine Nitrite Negative (NEG) Urine Bilirubin Negative (NEG) Urine Urobilinogen Dipstick 1.0 mg/dL (0.2 mg/dL) Urine Leukocyte Esterase Negative (NEG) Urine RBC 3-5 /HPF (0-2) Urine WBC 1-4 /HPF (0-4) Urine Squamous Epithelial Cells Many /LPF Urine Bacteria Moderate /HPF (0-FEW) Urine Mucus Marked /LPF Urine Opiates Screen Neg (NEG) Urine Methadone Screen Neg (NEG) Urine Barbiturates Neg (NEG) Urine Phencyclidine Screen Neg (NEG) Urine Amphetamine/Methamphetamine Neg (NEG) Urine Benzodiazepines Screen Neg (NEG) Urine Cocaine Screen Neg (NEG) Urine Cannabinoids Screen Neg (NEG) Urine Ethyl Alcohol Neg (NEG) Bedside Urine HCG, Qualitative Hcg negative (Negative) White Blood Count 13.0 x10^3/uL (4.0-11.0) Red Blood Count 4.48 x10^6/uL (3.50-5.40) Hemoglobin 14.4 g/dL (12.0-15.5) Hematocrit 41.7 % (36.0-47.0) Mean Corpuscular Volume 93 fL (79-100) Mean Corpuscular Hemoglobin 32 pg (25-35) Mean Corpuscular Hemoglobin Concent 34 g/dL (31-37) Red Cell Distribution Width 12.9 % (11.5-14.5) Platelet Count 346 x10^3/uL (140-400) Neutrophils (%) (Auto) 58 % (31-73) Lymphocytes (%) (Auto) 33 % (24-48) Monocytes (%) (Auto) 8 % (0-9) Eosinophils (%) (Auto) 1 % (0-3) Basophils (%) (Auto) 0 % (0-3) Neutrophils # (Auto) 7.6 x10^3/uL (1.8-7.7) Lymphocytes # (Auto) 4.2 x10^3/uL (1.0-4.8) Monocytes # (Auto) 1.1 x10^3/uL (0.0-1.1) Eosinophils # (Auto) 0.1 x10^3/uL (0.0-0.7) Basophils # (Auto) 0.0 x10^3/uL (0.0-0.2) D-Dimer (Bianka) 0.39 ug/mlFEU (0.00-0.50) Sodium Level 141 mmol/L (136-145) Potassium Level 3.9 mmol/L (3.5-5.1) Chloride Level 102 mmol/L (98-107) Carbon Dioxide Level 28 mmol/L (21-32) Anion Gap 11 (6-14) Blood Urea Nitrogen 15 mg/dL (7-20) Creatinine 1.1 mg/dL (0.6-1.0) Estimated GFR (Cockcroft-Gault) 65.6 BUN/Creatinine Ratio 14 (6-20) Glucose Level 117 mg/dL (70-99) Calcium Level 9.2 mg/dL (8.5-10.1) Total Bilirubin 0.3 mg/dL (0.2-1.0) Aspartate Amino Transf (AST/SGOT) 13 U/L (15-37) Alanine Aminotransferase (ALT/SGPT) 24 U/L (14-59) Alkaline Phosphatase 62 U/L (46-116) Troponin I Quantitative < 0.017 ng/mL (0.000-0.055) < 0.017 ng/mL (0.000-0.055) Total Protein 7.8 g/dL (6.4-8.2) Albumin 3.5 g/dL (3.4-5.0) Albumin/Globulin Ratio 0.8 (1.0-1.7) Test 03/20/19 23:00 Troponin I Quantitative < 0.017 ng/mL (0.000-0.055) Laboratory Tests Test 03/20/19 15:52 03/20/19 15:57 03/20/19 16:45 03/20/19 18:38 Urine Collection Type Unknown Urine Color Yellow Urine Clarity Clear Urine pH 5.0 Urine Specific [place] 1.025 Urine Protein Negative mg/dL (NEG-TRACE) Urine Glucose (UA) Negative mg/dL (NEG) Urine Ketones (Stick) Negative mg/dL (NEG) Urine Blood Trace (NEG) Urine Nitrite Negative (NEG) Urine Bilirubin Negative (NEG) Urine Urobilinogen Dipstick 1.0 mg/dL (0.2 mg/dL) Urine Leukocyte Esterase Negative (NEG) Urine RBC 3-5 /HPF (0-2) Urine WBC 1-4 /HPF (0-4) Urine Squamous Epithelial Cells Many /LPF Urine Bacteria Moderate /HPF (0-FEW) Urine Mucus Marked /LPF Urine Opiates Screen Neg (NEG) Urine Methadone Screen Neg (NEG) Urine Barbiturates Neg (NEG) Urine Phencyclidine Screen Neg (NEG) Urine Amphetamine/Methamphetamine Neg (NEG) Urine Benzodiazepines Screen Neg (NEG) Urine Cocaine Screen Neg (NEG) Urine Cannabinoids Screen Neg (NEG) Urine Ethyl Alcohol Neg (NEG) Bedside Urine HCG, Qualitative Hcg negative (Negative) White Blood Count 13.0 x10^3/uL (4.0-11.0) Red Blood Count 4.48 x10^6/uL (3.50-5.40) Hemoglobin 14.4 g/dL (12.0-15.5) Hematocrit 41.7 % (36.0-47.0) Mean Corpuscular Volume 93 fL (79-100) Mean Corpuscular Hemoglobin 32 pg (25-35) Mean Corpuscular Hemoglobin Concent 34 g/dL (31-37) Red Cell Distribution Width 12.9 % (11.5-14.5) Platelet Count 346 x10^3/uL (140-400) Neutrophils (%) (Auto) 58 % (31-73) Lymphocytes (%) (Auto) 33 % (24-48) Monocytes (%) (Auto) 8 % (0-9) Eosinophils (%) (Auto) 1 % (0-3) Basophils (%) (Auto) 0 % (0-3) Neutrophils # (Auto) 7.6 x10^3/uL (1.8-7.7) Lymphocytes # (Auto) 4.2 x10^3/uL (1.0-4.8) Monocytes # (Auto) 1.1 x10^3/uL (0.0-1.1) Eosinophils # (Auto) 0.1 x10^3/uL (0.0-0.7) Basophils # (Auto) 0.0 x10^3/uL (0.0-0.2) D-Dimer (Bianka) 0.39 ug/mlFEU (0.00-0.50) Sodium Level 141 mmol/L (136-145) Potassium Level 3.9 mmol/L (3.5-5.1) Chloride Level 102 mmol/L (98-107) Carbon Dioxide Level 28 mmol/L (21-32) Anion Gap 11 (6-14) Blood Urea Nitrogen 15 mg/dL (7-20) Creatinine 1.1 mg/dL (0.6-1.0) Estimated GFR (Cockcroft-Gault) 65.6 BUN/Creatinine Ratio 14 (6-20) Glucose Level 117 mg/dL (70-99) Calcium Level 9.2 mg/dL (8.5-10.1) Total Bilirubin 0.3 mg/dL (0.2-1.0) Aspartate Amino Transf (AST/SGOT) 13 U/L (15-37) Alanine Aminotransferase (ALT/SGPT) 24 U/L (14-59) Alkaline Phosphatase 62 U/L (46-116) Troponin I Quantitative < 0.017 ng/mL (0.000-0.055) < 0.017 ng/mL (0.000-0.055) Total Protein 7.8 g/dL (6.4-8.2) Albumin 3.5 g/dL (3.4-5.0) Albumin/Globulin Ratio 0.8 (1.0-1.7) Test 03/20/19 23:00 Troponin I Quantitative < 0.017 ng/mL (0.000-0.055) Medications Current Medications Albuterol Sulfate (Ventolin Neb Soln) 2.5 mg 1X ONCE NEB Last administered on 03/20/19at 16:29; Start 03/20/19 at 16:15; Stop 03/20/19 at 16:16; Status DC Prochlorperazine Edisylate (Compazine) 10 mg 1X ONCE IV Last administered on 03/20/19at 17:06; Start 03/20/19 at 16:15; Stop 03/20/19 at 16:16; Status DC Ketorolac Tromethamine (Toradol 30mg Vial) 30 mg 1X ONCE IV Last administered on 03/20/19at 17:06; Start 03/20/19 at 16:15; Stop 03/20/19 at 16:16; Status DC Sodium Chloride 1,000 ml @ 1,000 mls/hr 1X ONCE IV Last administered on 03/20/19at 17:53; Start 03/20/19 at 17:30; Stop 03/20/19 at 18:29; Status DC Aspirin ([place] Aspirin) 325 mg 1X ONCE PO Last administered on 03/20/19at 18:01; Start 03/20/19 at 17:45; Stop 03/20/19 at 17:46; Status DC Nitroglycerin (Nitro-Bid Oint) 1 inch 1X ONCE TP Last administered on 03/20/19at 19:34; Start 03/20/19 at 19:30; Stop 03/20/19 at 19:31; Status DC Ondansetron HCl (Zofran) 4 mg PRN Q8HRS PRN IV NAUSEA/VOMITING; Start 03/20/19 at 19:45; Stop 03/21/19 at 19:44 Fentanyl Citrate (Fentanyl 2ml Vial) 50 mcg PRN Q1HR PRN IV PAIN; Start 03/20/19 at 19:45; Stop 03/21/19 at 19:44 Acetaminophen (Tylenol) 650 mg PRN Q4HRS PRN PO FEVER; Start 03/20/19 at 19:45; Stop 03/21/19 at 19:44 Albuterol/ Ipratropium (Duoneb) 3 ml RTQID NEB Last administered on 03/21/19at 12:12; Start 03/20/19 at 20:00; Stop 03/21/19 at 19:59 Active Scripts Active Triamterene-Hctz 37.5-25 Mg Tb (Triamterene/Hydrochlorothiazid) 1 Each Tablet 1 Tab PO DAILY Vitals/I & O Vital Sign - Last 24 Hours 03/20/19 03/20/19 03/20/19 03/20/19 15:49 16:27 16:29 17:29 Temp 98.3 98.3 Pulse 111 116 96 Resp B/P (MAP) 201/109 (139) 184/97 (126) 177/68 (104) Pulse Ox 99 100 99 99 O2 Delivery Room Air Room Air Room Air Room Air 03/20/19 03/20/19 03/20/19 03/20/19 18:22 19:18 19:34 19:48 Pulse 96 100 95 102 Resp B/P (MAP) 171/85 (113) 215/95 (135) 200/78 200/91 (127) Pulse Ox 99 99 99 O2 Delivery Room Air Room Air Room Air 03/20/19 03/20/19 03/20/19 03/21/19 20:18 20:24 22:40 03:24 Temp 98.3 97.8 97.7 98.3 97.8 97.7 Pulse 102 83 71 Resp 18 16 18 B/P (MAP) 197/105 (135) 144/69 (94) 138/71 (93) Pulse Ox 95 93 96 O2 Delivery Room Air Room Air Room Air Room Air 03/21/19 03/21/19 03/21/19 03/21/19 07:00 08:00 08:08 11:00 Temp 98.2 98.2 98.2 98.2 Pulse 86 108 Resp 18 18 B/P (MAP) 166/91 (116) 187/85 (119) Pulse Ox 95 98 95 O2 Delivery Room Air Room Air Room Air Room Air 03/21/19 12:13 O2 Delivery Room Air Intake and Output 03/20/19 03/20/19 03/21/19 15:00 23:00 07:00 Intake Total 120 ml 0 ml Balance 120 ml 0 ml TERESA WALLACE MD Mar 21, 2019 12:36
[2019-03-21] MEDS: LOSARTAN POTASSIUM 50 MG TABLET. PO SCH (12:59)
[2019-03-21] MEDS: TRIAMTERENE/HCTZ 37.5/25MG TABLET. PO SCH (12:59)
--- NOTE | 2019-03-21 14:25 | CONS ---
DATE OF CONSULTATION: 03/21/2019 REASON FOR CONSULTATION: Chest pain. HISTORY OF PRESENT ILLNESS: Pleasant 43-year-old woman in her usual state of health, came to the hospital in the setting of chest pain. Blood pressure was over 200 systolic. She was admitted for further evaluation. In speaking with her, she reports occasional chest discomfort with heavy exertional activities, but no usual angina. She denies any syncope, palpitations, orthopnea, or PND. She does have exertional dyspnea. She has not had any prior cardiac interventions. She has struggled with blood pressure issues for quite some time. PAST MEDICAL HISTORY: 1. Hypertension. 2. Morbid obesity. 3. Likely obesity hypoventilation and sleep apnea. SOCIAL HISTORY: The patient denies any alcohol, tobacco or illicit drug use. 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 She has had issues with her weight over the last several years. Every time she has weight loss she is able to decrease her medications, but other times she has needed higher doses of her antihypertensives. FAMILY HISTORY: Noncontributory. REVIEW OF SYSTEMS: Negative unless otherwise mentioned above in the HPI. CURRENT MEDICATIONS: 1. Atorvastatin 10 mg daily. 2. Triamterene/hydrochlorothiazide 37.5/25 one tab daily. 3. Losartan 50 mg daily. PHYSICAL EXAMINATION: VITAL SIGNS: Afebrile, 108, 18, 187/85, 95% on room air. GENERAL: She is alert and oriented, no acute distress. HEAD AND NECK: Unremarkable. CARDIAC: Regular rate and rhythm without any murmurs, rubs or gallops. LUNGS: Clear to auscultation bilaterally. ABDOMEN: Obese, protuberant, nontender. EXTREMITIES: No clubbing, cyanosis or edema. NEUROLOGIC: No focal deficits. MUSCULOSKELETAL: No trauma. DIAGNOSTIC STUDIES: Troponin negative x 3. Urine studies are unremarkable. Toxicology studies are unremarkable. Creatinine and white blood cell count and hemoglobin and platelets are within normal limits. Chest x-ray and head CT are unremarkable. EKG performed in the ER was unremarkable. IMPRESSION: 1. Chest pain, likely secondary to hypertensive urgency. 2. Morbid obesity. 3. Likely obstructive sleep apnea. 4. Mild dyslipidemia. RECOMMENDATIONS: 1. Agree with her primary care physician, Dr. Vargas that if her blood pressure is better controlled, she may be discharged with an outpatient followup for a routine echocardiogram to rule out any significant left ventricular hypertrophy. 2. I have asked her to follow up with Dr. Vargas for consideration of a sleep study. 3. Continue low dose statin therapy for now. Outpatient titration as needed. Thank you for this consultation. Supportive care for now. LORENZO REED MD DR: AMRIT/sunitha JOB#: [id number] / [id number] CARID
--- NOTE | 2019-03-21 15:12 | SSS ---
ADMIT DATE: 23-HOUR SUMMARY This is a combined history and physical and discharge summary. DATE OF DISCHARGE: 03/22/2019 CHIEF COMPLAINT: Chest pain. HISTORY OF PRESENT ILLNESS: The patient is a 43-year-old female who presented to the Emergency Room with the above complaint. She reported the onset of substernal chest pain several days prior to admission. This was apparently accompanied by some shortness of breath and a feeling of chest heaviness. Her symptoms were mild at first, but continued to worsen, so she grew concerned and came to the Emergency Room. Evaluation there showed her initial blood pressure to be 215/95. Initial EKG was without acute ischemic change. Initial troponin was negative. Treatment was started and the patient was admitted for further care. PAST MEDICAL HISTORY: Hypertension. PAST SURGICAL HISTORY: Bilateral tubal ligation and a complete hysterectomy. ALLERGIES: The patient has no known drug allergies. HOME MEDICATIONS: Triamterene/hydrochlorothiazide 37.5/25 one daily. FAMILY HISTORY: Noncontributory. SOCIAL HISTORY: The patient is single. She does not smoke cigarettes or drink alcohol to excess. REVIEW OF SYSTEMS: The patient denies fever or chills. She denies other episodes of chest pain. She denies cough, wheezing or other shortness of breath. She denies a history of asthma. She denies abdominal pain, nausea or vomiting. She denies lower extremity edema. She has been taking her blood pressure medicine daily, but admits that she was overdue for followup in our office on this. PHYSICAL EXAMINATION: GENERAL: The patient is alert and oriented x 3, sitting up comfortably in bed and in no acute distress. HEENT: PERRL, EOMI, sclerae clear. Oropharynx: Mucous membranes moist. NECK: Supple, without lymphadenopathy. CHEST: Clear to auscultation. CARDIOVASCULAR: Regular rhythm without murmur. ABDOMEN: Soft, nontender and normoactive bowel sounds are present. EXTREMITIES: Bilateral lower extremities are without edema. HOSPITAL COURSE: The patient was admitted and placed on telemetry where she remains in sinus rhythm. Three troponins are completely within normal limits. The patient's chest pain resolved after the initiation of nitroglycerin paste and has not recurred. Her second EKG in the Emergency Room, apparently showed some subtle differences and so Cardiology was consulted for further recommendations. It is anticipated that the patient may be able to return home later today if Cardiology is in agreement to follow up for outpatient testing if indicated. The patient's blood pressure is not well controlled with her usual medication. Losartan 50 mg has been added and she is strongly advised to take these medicines daily. She already has an appointment with me in the office on Saturday and she will keep this appointment to recheck her blood pressure. The patient had significantly elevated lipids on office lab. This has been discussed with her and she is in agreement with starting treatment. Therefore, atorvastatin 10 mg has been prescribed. She had mild hyperglycemia on lab here with nonfasting glucose of 117. An A1c was 5.9, indicating that patient has glucose intolerance. This was discussed with her and a diet with decreased simple carbohydrates was advised. Addendum: Patient was not discharged on 03/21/19 as her blood pressure remained elevated. Losartan was increased to 100mg daily and blood pressure control was improved with this. She was discharged home on 03/22/19. FINAL DIAGNOSES: 1. Hypertensive urgency. 2. Hyperlipidemia. 3. Glucose intolerance. DISCHARGE MEDICATIONS: Triamterene/hydrochlorothiazide 37.5/25 one daily, losartan 100 mg daily and atorvastatin 10 mg daily. FOLLOWUP: Followup is with Dr. Vargas as scheduled on 03/24/2019. Follow up with Cardiology as advised. TERESA VARGAS MD DR: ANUSHA/sunitha JOB#: [id number] / [id number] MIKE
[2019-03-21] MEDS ORDERED: IPRATRPIUM/ALBUTEROL 0.5/2.5MG 3 ML NEBU. ONE (15:41)
[2019-03-21] MEDS ORDERED: LOSARTAN POTASSIUM 50 MG TABLET. PO ONE (20:30)
[2019-03-21] MEDS ORDERED: ATORVASTATIN CALCIUM 10 MG TABLET. PO SCH (21:00)
[2019-03-22 03:45] VITALS: BP 188/94
[2019-03-22 05:40] LABS: HEMOGLOBIN A1C 5.9 % (4.8-5.6)
[2019-03-22 07:00] VITALS: BP 186/82
[2019-03-22] MEDS ORDERED: ACETAMINOPHEN 325 MG TABLET. PO PRN (07:00)
[2019-03-22] MEDS: LOSARTAN POTASSIUM 50 MG TABLET. PO SCH (07:49)
[2019-03-22] MEDS: TRIAMTERENE/HCTZ 37.5/25MG TABLET. PO SCH (07:49)
[2019-03-22] MEDS ORDERED: TRIAMTERENE/HCTZ 37.5/25MG TABLET. PO SCH (09:00)
--- NOTE | 2019-03-22 10:01 | EKG ---
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
--- NOTE | 2019-03-22 10:01 | EKG ---
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
[2019-03-22] MEDS ORDERED: LOSARTAN POTASSIUM 50 MG TABLET. PO SCH (10:30)
[2019-03-22] MEDS ORDERED: LOSARTAN POTASSIUM 50 MG TABLET. PO ONE (10:45)
[2019-03-22 11:00] VITALS: BP 179/80
[2019-03-22 12:41] VITALS: BP 157/70
[2019-03-22 12:44] VITALS: BP 195/115
--- NOTE | 2019-03-22 12:59 | PDOC ---
PROGRESS NOTES Subjective Subjective Patient admits to feeling somewhat anxious about her blood pressure, otherwise feels OK. No further chest pain. Objective Objective Vital Signs Date Time Temp Pulse Resp B/P (MAP) Pulse Ox O2 Delivery O2 Flow Rate FiO2 03/22/19 12:44 97.7 105 195/115 (141) 97 Room Air 97.7 03/22/19 11:00 18 03/21/19 19:25 Intake and Output 03/22/19 06:59 Intake Total 720 ml Balance 720 ml Intake Oral 720 ml # Voids 2 Physical Exam Abdomen: Normal bowel sounds, Soft, No tenderness Heart: Regular rate Extremities: No edema General: Alert, Oriented X3, No acute distress Lungs: Clear to auscultation Assessment Assessment Problems Medical Problems: (1) Chest pain Status: Acute (2) Chest tightness Status: Acute (3) Headache Status: Acute (4) Hypertension Status: Acute (5) Shortness of breath Status: Acute Plan Plan of Care 1. Hypertensive urgency - BP still somewhat labile. Not orthostatic, control improved with Losartan 100mg. Home today. Follow up in office this week. 2. chest pain - resolved. Follow up with Cardiology as advised. 3. hyperlipidemia - lipids elevated on office lab, home on new statin. 4. glucose intolerance - A1C 5.9, patient advised to watch diet and work on weight loss. 5. possible sleep apnea - patient admits to snoring. Will order sleep study as outpatient. Comment Review of Relevant I have reviewed the following items urszula (where applicable) has been applied. Labs Laboratory Tests Test 03/20/19 15:52 03/20/19 15:57 03/20/19 16:45 03/20/19 18:38 Urine Collection Type Unknown Urine Color Yellow Urine Clarity Clear Urine pH 5.0 Urine Specific Happy 1.025 Urine Protein Negative mg/dL (NEG-TRACE) Urine Glucose (UA) Negative mg/dL (NEG) Urine Ketones (Stick) Negative mg/dL (NEG) Urine Blood Trace (NEG) Urine Nitrite Negative (NEG) Urine Bilirubin Negative (NEG) Urine Urobilinogen Dipstick 1.0 mg/dL (0.2 mg/dL) Urine Leukocyte Esterase Negative (NEG) Urine RBC 3-5 /HPF (0-2) Urine WBC 1-4 /HPF (0-4) Urine Squamous Epithelial Cells Many /LPF Urine Bacteria Moderate /HPF (0-FEW) Urine Mucus Marked /LPF Urine Opiates Screen Neg (NEG) Urine Methadone Screen Neg (NEG) Urine Barbiturates Neg (NEG) Urine Phencyclidine Screen Neg (NEG) Urine Amphetamine/Methamphetamine Neg (NEG) Urine Benzodiazepines Screen Neg (NEG) Urine Cocaine Screen Neg (NEG) Urine Cannabinoids Screen Neg (NEG) Urine Ethyl Alcohol Neg (NEG) Bedside Urine HCG, Qualitative Hcg negative (Negative) White Blood Count 13.0 x10^3/uL (4.0-11.0) Red Blood Count 4.48 x10^6/uL (3.50-5.40) Hemoglobin 14.4 g/dL (12.0-15.5) Hematocrit 41.7 % (36.0-47.0) Mean Corpuscular Volume 93 fL (79-100) Mean Corpuscular Hemoglobin 32 pg (25-35) Mean Corpuscular Hemoglobin Concent 34 g/dL (31-37) Red Cell Distribution Width 12.9 % (11.5-14.5) Platelet Count 346 x10^3/uL (140-400) Neutrophils (%) (Auto) 58 % (31-73) Lymphocytes (%) (Auto) 33 % (24-48) Monocytes (%) (Auto) 8 % (0-9) Eosinophils (%) (Auto) 1 % (0-3) Basophils (%) (Auto) 0 % (0-3) Neutrophils # (Auto) 7.6 x10^3/uL (1.8-7.7) Lymphocytes # (Auto) 4.2 x10^3/uL (1.0-4.8) Monocytes # (Auto) 1.1 x10^3/uL (0.0-1.1) Eosinophils # (Auto) 0.1 x10^3/uL (0.0-0.7) Basophils # (Auto) 0.0 x10^3/uL (0.0-0.2) D-Dimer (Bianka) 0.39 ug/mlFEU (0.00-0.50) Sodium Level 141 mmol/L (136-145) Potassium Level 3.9 mmol/L (3.5-5.1) Chloride Level 102 mmol/L (98-107) Carbon Dioxide Level 28 mmol/L (21-32) Anion Gap 11 (6-14) Blood Urea Nitrogen 15 mg/dL (7-20) Creatinine 1.1 mg/dL (0.6-1.0) Estimated GFR (Cockcroft-Gault) 65.6 BUN/Creatinine Ratio 14 (6-20) Glucose Level 117 mg/dL (70-99) Hemoglobin A1c 5.9 % (4.8-5.6) Calcium Level 9.2 mg/dL (8.5-10.1) Total Bilirubin 0.3 mg/dL (0.2-1.0) Aspartate Amino Transf (AST/SGOT) 13 U/L (15-37) Alanine Aminotransferase (ALT/SGPT) 24 U/L (14-59) Alkaline Phosphatase 62 U/L (46-116) Troponin I Quantitative < 0.017 ng/mL (0.000-0.055) < 0.017 ng/mL (0.000-0.055) Total Protein 7.8 g/dL (6.4-8.2) Albumin 3.5 g/dL (3.4-5.0) Albumin/Globulin Ratio 0.8 (1.0-1.7) Test 03/20/19 23:00 Troponin I Quantitative < 0.017 ng/mL (0.000-0.055) Medications Current Medications Albuterol Sulfate (Ventolin Neb Soln) 2.5 mg 1X ONCE NEB Last administered on 03/20/19at 16:29; Start 03/20/19 at 16:15; Stop 03/20/19 at 16:16; Status DC Prochlorperazine Edisylate (Compazine) 10 mg 1X ONCE IV Last administered on 03/20/19at 17:06; Start 03/20/19 at 16:15; Stop 03/20/19 at 16:16; Status DC Ketorolac Tromethamine (Toradol 30mg Vial) 30 mg 1X ONCE IV Last administered on 03/20/19at 17:06; Start 03/20/19 at 16:15; Stop 03/20/19 at 16:16; Status DC Sodium Chloride 1,000 ml @ 1,000 mls/hr 1X ONCE IV Last administered on at 17:53; Start 03/20/19 at 17:30; Stop 03/20/19 at 18:29; Status DC Aspirin ([place] Aspirin) 325 mg 1X ONCE PO Last administered on 03/20/19at 18:01; Start 03/20/19 at 17:45; Stop 03/20/19 at 17:46; Status DC Nitroglycerin (Nitro-Bid Oint) 1 inch 1X ONCE TP Last administered on 03/20/19at 19:34; Start 03/20/19 at 19:30; Stop 03/20/19 at 19:31; Status DC Ondansetron HCl (Zofran) 4 mg PRN Q8HRS PRN IV NAUSEA/VOMITING; Start 03/20/19 at 19:45; Stop 03/21/19 at 19:44; Status DC Fentanyl Citrate (Fentanyl 2ml Vial) 50 mcg PRN Q1HR PRN IV PAIN; Start 03/20/19 at 19:45; Stop 03/21/19 at 12:38; Status DC Acetaminophen (Tylenol) 650 mg PRN Q4HRS PRN PO FEVER; Start 03/20/19 at 19:45; Stop 03/21/19 at 19:44; Status DC Albuterol/ Ipratropium (Duoneb) 3 ml RTD NEB Last administered on 03/21/19at 12:12; Start 03/20/19 at 20:00; Stop 03/21/19 at 12:38; Status DC Losartan Potassium (Cozaar) 50 mg DAILY PO Last administered on 03/22/19at 07:50; Start 03/21/19 at 12:45 Atorvastatin Calcium (Lipitor) 10 mg QHS PO Last administered on 03/21/19at 20:42; Start 03/21/19 at 21:00 Triamterene/HCTZ (Maxzide 37.5/ 25mg) 1 tab DAILY PO ; Start 03/22/19 at 09:00; Stop 03/21/19 at 12:42; Status DC Triamterene/HCTZ (Maxzide 37.5/ 25mg) 1 tab DAILY PO Last administered on 03/22/19at 07:50; Start 03/21/19 at 12:45 Albuterol/ Ipratropium (Duoneb) 3 ml STK-MED ONCE .ROUTE ; Start 03/21/19 at 15:41; Stop 03/21/19 at 15:41; Status DC Losartan Potassium (Cozaar) 50 mg 1X ONCE PO Last administered on 03/21/19at 20:42; Start 03/21/19 at 20:30; Stop 03/21/19 at 20:31; Status DC Acetaminophen (Tylenol) 650 mg PRN Q6HRS PRN PO HEADACHE Last administered on 03/22/19at 07:50; Start 03/22/19 at 07:00 Losartan Potassium (Cozaar) 50 mg 1X PO ; Start 03/22/19 at 10:30; Status Cancel Losartan Potassium (Cozaar) 50 mg 1X ONCE PO Last administered on 03/22/19at 10:41; Start 03/22/19 at 10:45; Stop 03/22/19 at 10:46; Status DC Active Scripts Active Triamterene-Hctz 37.5-25 Mg Tb (Triamterene/Hydrochlorothiazid) 1 Each Tablet 1 Tab PO DAILY Vitals/I & O Vital Sign - Last 24 Hours 03/21/19 03/21/19 03/21/19 03/21/19 12:59 15:00 19:25 19:45 Temp 98.1 98.1 98.1 98.1 Pulse 108 107 103 100 Resp 18 20 B/P (MAP) 187/85 176/84 (114) 184/87 (119) 196/93 (127) Pulse Ox 95 95 O2 Delivery Room Air Room Air Room Air O2 Flow Rate 03/21/19 03/21/19 03/21/19 03/21/19 20:00 20:00 20:42 22:50 Temp 98.1 98.1 Pulse 92 104 88 Resp 20 B/P (MAP) 196/83 (120) 196/83 168/86 (113) Pulse Ox 96 O2 Delivery Room Air Room Air Room Air 03/22/19 03/22/19 03/22/19 03/22/19 03:45 07:00 07:50 08:00 Temp 98.1 98.3 98.1 98.3 Pulse 98 86 97 Resp 20 18 B/P (MAP) 188/94 (125) 186/82 (116) 186/82 Pulse Ox 96 95 O2 Delivery Room Air Room Air Room Air 03/22/19 03/22/19 03/22/19 03/22/19 10:41 11:00 12:41 12:44 Temp 97.7 97.7 97.7 97.7 Pulse 97 92 88 105 Resp 18 B/P (MAP) 186/82 179/80 (113) 157/70 (99) 195/115 (141) Pulse Ox 97 97 O2 Delivery Room Air Room Air Intake and Output 03/21/19 03/21/19 03/22/19 14:59 22:59 06:59 Intake Total 120 ml 600 ml Balance 120 ml 600 ml TERESA WALLACE MD Mar 22, 2019 12:59
[2019-03-22] MEDS ORDERED: ATOR10TA60 PO (13:02)
[2019-03-22] MEDS ORDERED: LOSA100T14 PO (13:02)
--- NOTE | 2019-03-22 15:34 | NUR ---
Discharge Note: STEVE LINARES [address] Discharge instructions and discharge home medications reviewed with Patient and a copy given. All questions have been answered and understanding verbalized. Instructions and handouts were given. Discontinued lines and tele. Patient discharged to home self care.
== END 2019-03-22 15:37 | disposition home or self-care (01) | DRG 305 ==
LOC: ER 15:45 → 2 SOUTH 19:27
PROVIDERS: ADMIT Family Medicine; ATTEND Family Medicine
DX: I16.0 Hypertensive urgency (principal); Z68.43 Body mass index [BMI] 50.0-59.9, adult; E66.01 Morbid (severe) obesity due to excess calories; E74.39 Other disorders of intestinal carbohydrate absorption; G47.30 Sleep apnea, unspecified; E78.5 Hyperlipidemia, unspecified; R73.9 Hyperglycemia, unspecified; I10 Essential (primary) hypertension; Z90.710 Acquired absence of both cervix and uterus; Z79.899 Other long term (current) drug therapy; Z98.51 Tubal ligation status
CPT/HCPCS: 36415; 70450; 71046; 80053; 80307; 81001; 81025; 83036; 84484; 85025; 85379; 87086; 93005; 94640; 94760; 96374; J0780; J1885; J7030; J7613; J7620; 99285-25; G0378

== ENCOUNTER → 2019-05-21 | Outpatient (CLI) | payer OTHER ==
[~2019-05-21] MED LIST changes: +ATOR10TA60 PO; +HYDR-2761 PO; +LOSA100T14 PO; +METH4TAB2 PO; +TRIA1TAB3 PO
--- NOTE | 2019-05-21 11:43 | CARD ---
MR#: [id number] Date of Study: 05/21/2019 Ordering Physician: LORENZO NAVA, Referring Physician: LORENZO NAVA, Tech: Darleen Daniel APPROVED REPORT EXAM: Two-dimensional and M-mode echocardiogram with Doppler and color Doppler. Other Information Quality : Average INDICATION Chest Pain RISK FACTORS Hypertension Hyperlipidemia 2D DIMENSIONS RVDd2.6 (2.9-3.5cm)Left Atrium(2D)3.3 (1.6-4.0cm) IVSd1.2 (0.7-1.1cm)Aortic Root(2D)2.3 (2.0-3.7cm) LVDd4.0 (3.9-5.9cm)LVOT Diameter2.0 (1.8-2.4cm) PWd0.9 (0.7-1.1cm)LVDs2.2 (2.5-4.0cm) FS (%) 43.6 %SV51.1 ml LVEF(%)75.4 (>50%) Aortic Valve AoV Peak Carter.151.6cm/sAoV VTI31.8cm AO Peak GR.9.2mmHgLVOT Peak Carter.100.7cm/s AO Mean GR.5mmHgAVA (VMAX)2.06cm2 AI P 1/2 [id number] Mitral Valve MV E Repeqoxd65.8cm/sMV DECEL [id number] MV A Jyomrbjk02.3cm/sE/A Ratio1.1 Tricuspid Valve TR P. Ulkxigrb651nf/sRAP [id number] TR Peak Gr.[id number] Pulmonary Vein S1 Fxaoncjl90.4cm/sD2 Ocxudkwm82.6cm/s PVa [id number] LEFT VENTRICLE The left ventricle is normal size. There is mild to moderate concentric left ventricular hypertrophy. The left ventricular systolic function is normal and the ejection fraction is within normal range. T he Ejection Fraction is >55%. There is normal LV segmental wall motion. Transmitral Doppler flow tiffanie caesar is Grade II-pseudonormal filling dynamics. RIGHT VENTRICLE The right ventricle is normal size. There is normal right ventricular wall thickness. The right ventr icular systolic function is normal. ATRIA The left atrium size is normal. The right atrium size is normal. The interatrial septum is intact wit h no evidence for an atrial septal defect or patent foramen ovale as noted on 2-D or Doppler imaging. AORTIC VALVE The aortic valve is thickened but opens well. Doppler and Color Flow revealed trace aortic regurgitat ion. There is no significant aortic valvular stenosis. MITRAL VALVE The mitral valve is thickened but opens well. There is no evidence of mitral valve prolapse. There is no mitral valve stenosis. Doppler and Color Flow revealed no mitral valve regurgitation noted. TRICUSPID VALVE The tricuspid valve is normal in structure and function. Doppler and Color Flow revealed trace tricus pid regurgitation with an estimated PAP of 38 mmHg. There is no tricuspid valve stenosis. PULMONIC VALVE The pulmonic valve is not well visualized. Doppler and Color Flow revealed trace pulmonic valvular re gurgitation. There is no pulmonic valvular stenosis. GREAT VESSELS The aortic root is normal in size. The IVC was not visualized. PERICARDIAL EFFUSION There is a trace pericardial effusion. Critical Notification Critical Value: No <Conclusion> The left ventricular systolic function is normal and the ejection fraction is within normal range. Th e Ejection Fraction is >55%. There is normal LV segmental wall motion. Signed by : Lorenzo Nava, Electronically Approved : 05/21/2019 11:42:56
== END | disposition home or self-care (01) ==
LOC: ECHO 09:05
PROVIDERS: ATTEND Internal Medicine Cardiovascular Disease
DX: I31.3 Pericardial effusion (noninflammatory) (principal); I11.9 Hypertensive heart disease without heart failure; E78.5 Hyperlipidemia, unspecified
CPT/HCPCS: 93306

== ENCOUNTER → 2019-08-10 | Outpatient (CLI) | payer OTHER ==
[~2019-08-10] MED LIST changes: +ZOLPIDEM 5 MG TABLET. PO ONE
--- NOTE | 2019-08-11 10:05 | SLEEP ---
DATE OF STUDY: ATTENDING PHYSICIAN: Dr. Vargas. The patient is a 44-year-old who weighs 300 pounds with a BMI of 55. The patient's Amesbury score was 16. The patient underwent split night study performed at [facility]. During the night study, the patient spent 418 minutes in bed and slept for 334 minutes with a sleep efficiency of 80%. Sleep latency was 42 minutes with a REM latency of 188 minutes. Sleep architecture showed normal stage 1 sleep, increased stage 2 sleep, absent slow wave and reduced REM sleep. During the initial diagnostic portion of the study, the patient slept for 84 minutes. During that time, there were no apneas. The patient had 66 hypopneas. The patient's apnea hypopnea index was 47 per hour with a supine index of 78 per hour. REM sleep was not seen during the diagnostic portion. EKG monitoring revealed normal sinus rhythm, average heart rate 96 beats per minute. Mean oxygen saturation remained around 97% with the lowest of 74%. 32% of time oxygen saturation remained between 80% and 89%. PLMs were seen at index of 6 per hour and only 1 per hour caused EEG arousals. The patient met the criteria for CPAP initiation. It was started at 5 cm water and titrated up to 19 cm water. At the final pressure, the patient slept for 49 minutes. The patient's AHI was reduced to 0 per hour. The patient had supine sleep throughout and a short REM period observed. The patient's oxygen saturation remained above 92%. The patient used small size full face mask. IMPRESSION: 1. Severe sleep apnea-hypopnea syndrome at an AHI of 47 per hour. 2. Nocturnal hypoxia secondary to obstructive sleep apnea, but resolved with CPAP. 3. No clinically significant periodic limb movements. RECOMMENDATIONS: 1. CPAP at 19 cm water completely eliminated the patient's sleep apnea and should be used on a nightly basis. 2. Follow up in 4-6 weeks to assess compliance with CPAP and to document clinical improvement. 3. Weight loss is strongly advised. 4. Avoid BRIM CURLER depressants. 5. Cautioned regarding driving until symptoms of sleep apnea resolve with the use of CPAP. ELDA REECE MD DR: DOYLE/sunitha JOB#: [id number] / [id number] TERESA Quintana MD
== END | disposition home or self-care (01) ==
LOC: SLPLAB 18:53
PROVIDERS: ATTEND Family Medicine
DX: G47.33 Obstructive sleep apnea (adult) (pediatric) (principal); G47.34 Idiopathic sleep related nonobstructive alveolar hypoventilation
CPT/HCPCS: 95810

== ENCOUNTER 2020-04-05 17:52 | Emergency (ER) | payer SELFPAY ==
[~2020-04-05] VITALS: Ht 157.5 cm; Wt 91.0 kg
[~2020-04-05 17:52] MED LIST changes: -ZOLPIDEM 5 MG TABLET. PO ONE
--- NOTE | 2020-04-05 18:31 | PHYS DOC ---
Past Medical History Past Medical History: High Cholesterol, Hypertension Additional Past Medical Histor: SEASONAL ALLERGIES Past Surgical History: Hysterectomy, Tonsillectomy, Tubal ligation Smoking Status: Never Smoker Alcohol Use: Occasionally Drug Use: None General Adult EDM: Chief Complaint: LOWER EXT PAIN HPI: HPI: Patient is a 45 year old female presents with the chief complaint of right lower extremity pain x 4-5 days. Patient is concerned about a DVT. Pain primarily in right calf. Denies trauma. No history of dvt or pe but st ates family history. Patient not on control pill. US ordered. Patient arrived to ER by POV. She ambulated into the ER. Review of Systems: Review of Systems: Constitutional: Denies fever or chills. [] Eyes: Denies change in visual acuity. [] HENT: Denies nasal congestion or sore throat. [] Respiratory: Denies cough or shortness of breath. [] Cardiovascular: Denies chest pain or edema. [] GI: Denies abdominal pain, nausea, vomiting, bloody stools or diarrhea. [] : Denies dysuria. [] Musculoskeletal: positive right leg pain Integument: Denies rash. [] Neurologic: Denies headache, focal weakness or sensory changes. [] Endocrine: Denies polyuria or polydipsia. [] Lymphatic: Denies swollen glands. [] Psychiatric: Denies depression or anxiety. [] Heart Score: Risk Factors: Risk Factors: DM, Current or recent (<one month) smoker, HTN, HLP, family history of CAD, obesity. Risk Scores: Score 0 - 3: 2.5% MACE over next 6 weeks - Discharge Home Score 4 - 6: 20.3% MACE over next 6 weeks - Admit for Clinical Observation Score 7 - 10: 72.7% MACE over next 6 weeks - Early Invasive Strategies Allergies: Allergies: Allergies Coded Allergies Type Severity Reaction Last Updated Verified No Known Drug Allergies 07/24/18 No Physical Exam: PE: Constitutional: Well developed, well nourished, no acute distress, non-toxic appearance. [] HENT: Normocephalic, atraumatic, bilateral external ears normal, oropharynx moist, no oral exudates, nose normal. [] Eyes: PERRLA, EOMI, conjunctiva normal, no discharge. [] Neck: Normal range of motion, no tenderness, supple, no stridor. [] Cardiovascular:Heart rate regular rhythm, no murmur [] Lungs & Thorax: Bilateral breath sounds clear to auscultation [] Abdomen: Bowel sounds normal, soft, no tenderness, no masses, no pulsatile masses. [] Skin: Warm, dry, no erythema, no rash. [] Back: No tenderness, no CVA tenderness. [] Extremities: tenderness left calf, no deformities right lower extremity, do not appreciated pedal edema, no cyanosis, no clubbing, [] Neurologic: Alert and oriented X 3, normal motor function, normal sensory function, no focal deficits noted. [] Psychologic: Affect normal, judgement normal, mood normal. [] Current Patient Data: Vital Signs: Vital Signs Date Time Temp Pulse Resp B/P (MAP) Pulse Ox O2 Delivery O2 Flow Rate FiO2 04/05/20 18:13 98.5 109 18 157/78 (104) 98 Room Air 98.5 EKG: EKG: [] Radiology/Procedures: Radiology/Procedures: [] Course & Med Decision Making: Course & Med Decision Making Pertinent Labs and Imaging studies reviewed. (See chart for details) [] 1927- tech to room. No patient in room and gowned on the bed. test desk operator states patient left ER. Dragon Disclaimer: Karol Disclaimer: This electronic medical record was generated, in whole or in part, using a voice recognition dictation system. Departure Departure Impression: Primary Impression: Right leg pain Disposition: HOME, SELF-CARE Referrals: TERESA WALLACE MD (PCP) Additional Instructions: Patient left prior to completion of work up. Justicifation of Admission Dx: Justifications for Admission: Justification of Admission Dx: N/A ORLANDO POPE DO Apr 05, 2020 18:31
== END 2020-04-05 19:22 ==
LOC: ER 17:52
DX: M79.604 Pain in right leg (principal); E78.00 Pure hypercholesterolemia, unspecified; I10 Essential (primary) hypertension; Z90.710 Acquired absence of both cervix and uterus; Z98.51 Tubal ligation status
CPT/HCPCS: 99281

== ENCOUNTER 2020-04-24 08:27 | Emergency (ER) | payer OTHER ==
[~2020-04-24] VITALS: Ht 160 cm; Wt 91.3 kg
[2020-04-24 08:32] VITALS: BP 161/86
--- NOTE | 2020-04-24 08:51 | PHYS DOC ---
Past Medical History Past Medical History: GERD, High Cholesterol, Hypertension Additional Past Medical Histor: SEASONAL ALLERGIES Past Surgical History: Hysterectomy, Tonsillectomy, Tubal ligation Smoking Status: Never Smoker Alcohol Use: Occasionally Drug Use: None General Adult EDM: Chief Complaint: LOWER EXT PAIN HPI: HPI: Patient is a 45-year-old female with no reported past medical history who presents with chief complaint of right lateral knee and anterior tibia pain for the past 4 weeks. Denies trauma or injury. States she woke up 1 day and experienced the symptoms. States it is worse when she walks. She states that she feels as though her knee is unstable when she walks. Denies any increase in exercise or activity. States she has tried Aleve and Tylenol at home with no relief. Denies any posterior leg pain. Denies swelling. Denies redness. Denies increase in warmth. Denies any history of blood clot in legs or lungs. Denies chest pain or shortness of breath. Denies ankle pain. States the pain is aching in nature. No other complaints. Patient denies any history of immobilization greater than 48 hours, recent hospitalizations, recent surgery, recent trauma, , oral contraceptive usage, hormone replacement therapy, air travel greater than 8 hours, recent infectious disease, or general deterioration of their overall condition. Review of Systems: Review of Systems: Constitutional: Denies fever or chills. [] Eyes: Denies change in visual acuity. [] HENT: Denies nasal congestion or sore throat. [] Respiratory: Denies cough or shortness of breath. [] Cardiovascular: Denies chest pain or edema. [] GI: Denies abdominal pain, nausea, vomiting, bloody stools or diarrhea. [] : Denies dysuria. [] Musculoskeletal: Positive for knee pain and tibia pain Integument: Denies rash. [] Neurologic: Denies headache, focal weakness or sensory changes. [] Endocrine: Denies polyuria or polydipsia. [] Lymphatic: Denies swollen glands. [] Psychiatric: Denies depression or anxiety. [] Heart Score: Risk Factors: Risk Factors: DM, Current or recent (<one month) smoker, HTN, HLP, family history of CAD, obesity. Risk Scores: Score 0 - 3: 2.5% MACE over next 6 weeks - Discharge Home Score 4 - 6: 20.3% MACE over next 6 weeks - Admit for Clinical Observation Score 7 - 10: 72.7% MACE over next 6 weeks - Early Invasive Strategies Allergies: Allergies: Allergies Coded Allergies Type Severity Reaction Last Updated Verified No Known Drug Allergies 07/24/18 No Physical Exam: PE: Constitutional: Well developed, well nourished, no acute distress, non-toxic a ppearance. [] HENT: Normocephalic, atraumatic, bilateral external ears normal, oropharynx moist, no oral exudates, nose normal. [] Eyes: PERRLA, EOMI, conjunctiva normal, no discharge. [] Neck: Normal range of motion, no tenderness, supple, no stridor. [] Cardiovascular:Heart rate regular rhythm, no murmur [] Lungs & Thorax: Bilateral breath sounds clear to auscultation [] Abdomen: soft, no tenderness, no masses, no pulsatile masses. [] Skin: Warm, dry, no erythema, no rash. [] Back: No tenderness, no CVA tenderness. [] Extremities: R Knee Erythema not present. Warmth not present. Effusion not present. Anterior drawer is intact. Posterior drawer is intact. Varus testing is intact. Valgus testing is intact. Knee extension is intact. DNVI (DP pulse 2+, plantar and dorsiflexion intact, light touch intact. Pain increased with valgus stress on the right knee. No posterior calf tenderness. No increase in warmth or redness. No unilateral swelling appreciated. Neurologic: Alert and oriented X 3, normal motor function, normal sensory function, no focal deficits noted. [] Psychologic: Affect normal, judgement normal, mood normal. [] Current Patient Data: Vital Signs: Vital Signs Date Time Temp Pulse Resp B/P (MAP) Pulse Ox O2 Delivery O2 Flow Rate FiO2 04/24/20 08:32 98.3 104 16 161/86 (111) 97 Room Air 98.3 EKG: EKG: [] Radiology/Procedures: Radiology/Procedures: [facility] [address] [place] [address] IMAGING REPORT Signed PATIENT: STEVE LINARES ACCOUNT: [id number] : 1975 LOCATION: ER AGE: 45 SEX: F EXAM STATUS: PRE ER ORD. PHYSICIAN: KEIRY CROWLEY DO REASON: lateral right knee pain radiating to anterior tibia mid shaft PROCEDURE: TIBIA FIBULA RIGHT Right knee 3 views 04/24/2020. Reason for exam: Pain. No fracture or dislocation is seen. There is some narrowing of the medial and patellofemoral compartments. There is no apparent destructive process. IMPRESSION: Mild osteoarthritis. No apparent acute abnormality. Right tibia and fibula 2 views: No fracture or dislocation is seen. There is no apparent destructive process. IMPRESSION: No acute abnormality. Electronically signed by: Candida Chou Jr., MD (04/24/2020 9:10 AM) [facility] DICTATED and SIGNED BY: CANDIDA CHOU Jr, MD DATE: 04/24/20 09 [facility] [address] [place] [address] IMAGING REPORT Signed PATIENT: STEVE LINARES ACCOUNT: [id number] : 1975 LOCATION: ER AGE: 45 SEX: F EXAM STATUS: PRE ER ORD. PHYSICIAN: KEIRY CROWLEY DO REASON: lateral right knee pain radiating to anterior tibia mid shaft PROCEDURE: KNEE RIGHT 3V Right knee 3 views 04/24/2020. Reason for exam: Pain. No fracture or dislocation is seen. There is some narrowing of the medial and patellofemoral compartments. There is no apparent destructive process. IMPRESSION: Mild osteoarthritis. No apparent acute abnormality. Right tibia and fibula 2 views: No fracture or dislocation is seen. There is no apparent destructive process. IMPRESSION: No acute abnormality. Electronically signed by: Candida Chou Jr., MD (04/24/2020 9:10 AM) [facility] DICTATED and SIGNED BY: CANDIDA CHOU Jr, MD DATE: 04/24/20 09 [] Course & Med Decision Making: Course & Med Decision Making Pertinent Labs and Imaging studies reviewed. (See chart for details) [] Patient is a well-appearing 45-year-old female who presents with chief complaint of right anterior lateral knee pain that radiates to the anterior right tibia. Denies trauma or injury. No clinical signs or symptoms suspicious for DVT. Furthermore she denies any risk factors for this. I do suspect that patient may be experiencing right knee pain referred to her right anterior tibia. She may be experiencing some meniscal or ligamentous strain secondary to her obesity. She was given an Ramin wrap. She was given referral to orthopedic surgery. She was encouraged to continue to use anti-inflammatories at home. Return precautions discussed and understood. Instructed to follow-up with her primary care physician in the next 2 to 3 days. Stable for discharge home. Dragon Disclaimer: Dragderrek Disclaimer: This electronic medical record was generated, in whole or in part, using a voice recognition dictation system. Departure Departure Impression: Primary Impression: Right knee pain Qualified Codes: M25.561 - Pain in right knee Additional Impression: Pain of right tibia Disposition: HOME, SELF-CARE Condition: STABLE Referrals: TERESA WALLACE MD (PCP) JUAN MIGUEL FONTANEZ MD Patient Instructions: Knee - Cartilage (Meniscus) Injury, Knee - Ligament Injury, Arthroscopy Scripts Hydrocodone/Apap 5-325 (NORCO 5-325 TABLET) 1 Each Tablet 1-2 EACH PO PRN Q6HRS PRN for PAIN, #5 as needed for pain Prov: KEIRY CROWLEY DO 04/24/20 Justicifation of Admission Dx: Justifications for Admission: Justification of Admission Dx: N/A KEIRY CROWLEY DO Apr 24, 2020 08:51
[2020-04-24] MEDS ORDERED: HYDROcodone/APAP 5/325MG 1 TAB TABLET PO ONE (09:00)
--- NOTE | 2020-04-24 09:13 | RAD ---
Right knee 3 views 04/24/2020. Reason for exam: Pain. No fracture or dislocation is seen. There is some narrowing of the medial and patellofemoral compartments. There is no apparent destructive process. IMPRESSION: Mild osteoarthritis. No apparent acute abnormality. Right tibia and fibula 2 views: No fracture or dislocation is seen. There is no apparent destructive process. IMPRESSION: No acute abnormality. Electronically signed by: Julius Chou Jr., MD (04/24/2020 9:10 AM) [facility]
[2020-04-24] MEDS ORDERED: HYDR-3164 PO (09:18)
== END 2020-04-24 09:21 | disposition home or self-care (01) ==
LOC: ER 08:27
DX: M25.561 Pain in right knee (principal); M25.571 Pain in right ankle and joints of right foot; K21.9 Gastro-esophageal reflux disease without esophagitis; E78.00 Pure hypercholesterolemia, unspecified; I10 Essential (primary) hypertension; Z90.710 Acquired absence of both cervix and uterus; Z98.51 Tubal ligation status
CPT/HCPCS: 73562; 73590; 99284

== ENCOUNTER → 2020-05-11 | Outpatient (CLI) | payer OTHER ==
[2020-04-24 08:32] VITALS: BP 161/86
[~2020-05-11] MED LIST changes: +HYDR-3164 PO
--- NOTE | 2020-05-12 08:30 | KCIC ---
EXAM: MRI RIGHT KNEE DATE: 05/11/2020 12:30 PM CLINICAL INDICATION: Right knee pain-generalized knee pain for 6 weeks COMPARISON: None. TECHNIQUE: Multiplanar, multisequence MRI of the right knee was performed without contrast. FINDINGS: Small knee joint effusion. No significant Wheeler's cyst. The ACL and PCL are intact. The MCL, fibular collateral ligament, biceps femoris and IT band are intact. The popliteus is normal in signal and morphology, intact. Extensor mechanism is intact. Mild lateral patellar tracking. Suprapatellar fat pad edema may be seen with anterior knee pain/impingement. Medial meniscus: Free edge blunting of the body segment medial meniscus consistent with radial tear. In addition there is a peripheral longitudinal tear of the posterior horn medial meniscus with small parameniscal cyst. Lateral meniscus: Intact Tricompartmental chondromalacia. Full-thickness cartilage defect medial patellar facet with subchondral edema extending into the apex. Chondral thinning medial compartment without discrete full-thickness defect. No fracture or osteonecrosis. IMPRESSION: 1. Right knee joint osteoarthritis, most prominent at the patellofemoral compartment. 2. Radial tear body segment medial meniscus and peripheral longitudinal tear posterior horn medial meniscus with small para meniscal cyst. 3. Mild suprapatellar fat pad edema may be seen with anterior knee pain/impingement. Electronically signed by: Rich Pond MD (05/12/2020 8:28 AM) [id number]
== END ==
LOC: KCIC MRI 12:27
PROVIDERS: ATTEND Orthopaedic Surgery
DX: S83.221A Peripheral tear of medial meniscus, current injury, right knee, initial encounter (principal); M17.11 Unilateral primary osteoarthritis, right knee; M23.021 Cystic meniscus, posterior horn of medial meniscus, right knee; X58.XXXA Exposure to other specified factors, initial encounter; Y93.89 Activity, other specified; Y92.89 Other specified places as the place of occurrence of the external cause; Y99.8 Other external cause status
CPT/HCPCS: 73721

== ENCOUNTER → 2020-09-15 | Outpatient (CLI) | payer OTHER ==
[~2020-09-15] MED LIST changes: +ASPI325T11 PO; +HYDR-2763 PO; +LISI10TA16 PO; -LISI10TA2 PO; +PROM25TA10 PO
== END ==
LOC: LAB 09:41
PROVIDERS: ATTEND Orthopaedic Surgery
DX: Z01.812 Encounter for preprocedural laboratory examination (principal); Z20.822 Contact with and (suspected) exposure to COVID-19
CPT/HCPCS: U0003

== ENCOUNTER 2020-09-19 10:57 | Day surgery (SDC) | payer OTHER ==
[~2020-09-19] VITALS: Ht 175.3 cm; Wt 140.6 kg
[~2020-09-19 10:57] MED LIST changes: -ASPI325T11 PO; +BUPIVACAINE-EPI 0.25% 30 ML VIAL KIT. ONE; +EPINEPHrine VIAL 30 MG/30 ML VIAL ONE; -HYDR-2763 PO; +HYDROmorphone 2 MG/ML VIAL IVP PRN; +IV RINGERS,LACTATED 1000ML 1,000 ML IV SCH; +PROCHLORPERAZINE 10 MG/2 ML VIAL. IVP PRN; -PROM25TA10 PO; +ceFAZolin SODIUM 3 GM in IV DEXTROSE 5% 100ML 100 ML IV PRN; +fentaNYL PF VIAL 100 MCG/2 ML VIAL IVP PRN
[2020-09-19] MEDS ORDERED: LIDOCAINE 2% PF 5 ML VIAL. ONE (11:45)
[2020-09-19] MEDS ORDERED: PROPOFOL 10 MG/ML (20ML) VIAL. IV ONE (11:45)
[2020-09-19] MEDS ORDERED: ONDANSETRON PF 4 MG/2 ML VIAL. ONE (11:46)
[2020-09-19] MEDS ORDERED: DEXAMETHASONE SOD PHOS 4 MG/ML VIAL ONE (11:46)
[2020-09-19] MEDS ORDERED: MIDAZOLAM HCL/PF 2 MG/2 ML VIAL. ONE (11:55)
--- NOTE | 2020-09-19 11:55 | PDOC1 ---
History and Physical Date of Admission Date of Admission DATE: 09/19/20 TIME: 11:50 Identification/Chief Complaint Chief Complaint Right knee pain Source Source: Chart review, Patient History of Present Illness History of Present Illness Steve is a 45-year-old with right knee pain, medial meniscus tear by MRI, but also is developing osteoarthritis. We had previously recommended arthroscopic meniscectomy, but her insurance requested a trial of physical therapy and other nonoperative treatment which are reasonable nonoperative options and sometimes are successful at relieving the pain. Steve has attempted to lose weight and is in the [employer] weight loss program. We have given her a goal weight of 220 pounds but it will take a long time to reach that. She tried physical therapy, NSAIDs, activity modification, and weight loss but is still having persistent medial knee pain interfering with activities on a daily basis, and she's becoming more depressed and less active as a result. She does have a radial root tear of the medial meniscus on MRI, which in my experience are the most painful medial meniscus tear pattern, and these patients often have quite a bit of pain relief with meniscectomy. I explained that meniscus tear is usually an indicator of the development of osteoarthritis, and that patients who undergo meniscectomy will at some point in the future (sometimes 15 years or more) often ultimately need a knee replacement surgery. She is only 45 years old, and her BMI is currently too high to consider knee replacement surgery. She would like to proceed with arthroscopic meniscectomy and continued nonoperative treatment for the osteoarthritis. Past Medical History Past Medical History Hypertension, osteoarthritis, obstructive sleep apnea, uses CPAP Cardiovascular: HTN Pulmonary: Other (obstructive sleep apnea) Musculoskeletal: Osteoarthritis Past Surgical History Past Surgical History Tubal ligation, hysterectomy Past Surgical History: Tubal Ligation, Hysterectomy Family History Family History Mother: alive 64 yrs Father: alive 64 yrs, arthritis, diagnosed with Cancer, Hypertension Sister: alive 46 yrs, migraine, Hypertension 1 sister(s) . 1daughter(s) . Social History Smoke: No ALCOHOL: occassional Current Medications Current Medications Current Medications Cefazolin Sodium 3 gm/Dextrose 100 ml @ 200 mls/hr 1X PREOP PRN IV PRIOR TO PROCEDURE; Start 09/19/20 at 06:00; Stop 09/19/20 at 15:00 Fentanyl Citrate (Fentanyl 2ml Vial) 25 mcg PRN Q5MIN PRN IVP MILD PAIN 1-3; Start 09/19/20 at 07:00; Stop 09/20/20 at 06:59 Fentanyl Citrate (Fentanyl 2ml Vial) 50 mcg PRN Q5MIN PRN IVP MODERATE PAIN 4- 6; Start 09/19/20 at 07:00; Stop 09/20/20 at 06:59 Morphine Sulfate (Morphine Sulfate) 1 mg PRN Q10MIN PRN IVP SEVERE PAIN 7-10; Start 09/19/20 at 07:00; Stop 09/20/20 at 06:59 Ringer's Solution 1,000 ml @ 30 mls/hr Q24H IV Last administered on 09/19/20at 11:27; Start 09/19/20 at 07:00; Stop 09/19/20 at 18:59 Hydromorphone HCl (Dilaudid) 0.5 mg PRN Q10MIN PRN IVP SEVERE PAIN 7-10, 2nd CHOICE; Start 09/19/20 at 07:00; Stop 09/20/20 at 06:59 Prochlorperazine Edisylate (Compazine) 5 mg PACU PRN PRN IVP NAUSEA, MRX1; Start 09/19/20 at 07:00; Stop 09/20/20 at 06:59 Epinephrine HCl (Adrenalin) 30 mg STK-MED ONCE .ROUTE ; Start 09/19/20 at 09:51; Stop 09/19/20 at 09:51; Status DC Bupivacaine HCl/ Epinephrine Bitart (Sensorcain-Epi 0.25% Kit) 30 ml STK-MED ONCE .ROUTE ; Start 09/19/20 at 09:51; Stop 09/19/20 at 09:51; Status DC Bupivacaine HCl/ Epinephrine Bitart (Sensorcain-Epi 0.25% Kit) 30 ml STK-MED ONCE .ROUTE ; Start 09/19/20 at 09:51; Stop 09/19/20 at 09:52; Status DC Propofol (Diprivan) 200 mg STK-MED ONCE IV ; Start 09/19/20 at 11:45; Stop 09/19/20 at 11:45; Status DC Lidocaine HCl (Lidocaine Pf 2% Vial) 5 ml STK-MED ONCE .ROUTE ; Start 09/19/20 at 11:45; Stop 09/19/20 at 11:45; Status DC Dexamethasone Sodium Phosphate (Decadron) 4 mg STK-MED ONCE .ROUTE ; Start 09/19/20 at 11:46; Stop 09/19/20 at 11:47; Status DC Ondansetron HCl (Zofran) 4 mg STK-MED ONCE .ROUTE ; Start 09/19/20 at 11:46; Stop 09/19/20 at 11:47; Status DC Active Scripts Active [place] 5-325 Tablet (Acetaminophen/Hydrocodone Bitart) 1 Each Tablet 1-2 Each PO PRN Q6HRS PRN as needed for pain Losartan Potassium 100 Mg Tablet 100 Mg PO DAILY 30 Days Atorvastatin Calcium 10 Mg Tablet 10 Mg PO QHS 30 Days Triamterene-Hctz 37.5-25 Mg Tb (Triamterene/Hydrochlorothiazid) 1 Each Tablet 1 Tab PO DAILY Allergies Allergies: Coded Allergies: naproxen (Verified Allergy, Intermediate, 09/14/20) ROS Review of System OPHTHALMOLOGY: Blurred vision none. Double vision denies. Change in vision none. ENT: Hearing loss none. Change in voice denies. Rhinorrhea none. CARDIOLOGY: Palpitations none. Shortness of breath denies. Chest pain denies. CONSTITUTIONAL: Fever denies. Chills denies. Weight gain reports. Weakness none. weight loss denies. Fatigue none. GASTROENTEROLOGY: Diarrhea denies. Vomiting none. Dysphagia none. UROLOGY: Voiding normally yes. Hematuria none. MUSCULOSKELETAL: Chronic back or neck pain denies. Swelling of the feet, hands, ankles and /or legs denies. Joint pain right knee. Tingling/numbness no. DERMATOLOGY: Rash denies. Lumps none. NEUROLOGY: Dizziness/lightheadedness denies. Double vision, temporary blindness denies. Tingling/numbness none. PSYCHOLOGY: Change in mood or personality reports. Memory loss none. ENDOCRINOLOGY: Obesity denies. Fatigue none. Weight loss none. HEMATOLOGY/LYMPH: Hepatitis denies. Enlarged lymph nodes denies. Physical Exam General: Alert, Cooperative HEENT: Atraumatic Lungs: Normal air movement Heart: RRR Abdomen: Soft Extremities: Other ( She has a severely antalgic gait, favoring the right knee. The RIGHT knee shows likely normal alignment although body habitus makes slight varus difficult to assess, no masses and doubtful effusion. There is tenderness at the medial joint line and a positive medial Brent's test. Additional tenderness to the tibial tubercle and mid shaft tibia. She is tender along the entire anterior cortex of the tibia as well. Range of motion is 0-135 degrees. There is trace patellofemoral crepitus. Brent's test is positive. There is medial joint line pain with deep flexion and especially with rotation of the tibia. The knee is stable to varus and valgus stress without subluxation or laxity. The ACL feels intact on [place] testing. Muscle strength is normal (5/5) for quadriceps and hamstrings, and muscle tone is normal. The skin is normal with no scars, rashes, lesions or ulcers. Light touch sensation is intact. No edema and no varicosities. Dorsalis pedis pulse is intact and capillary refill is normal) Skin: No breakdown, No significant lesion Neuro: Normal speech, Normal tone, Sensation intact Vitals Vitals Vital Signs Date Time Temp Pulse Resp B/P (MAP) Pulse Ox O2 Delivery O2 Flow Rate FiO2 09/19/20 11:22 97.3 108 18 185/80 97 Room Air 97.3 Images Images Report reviewed, images independently reviewed. Trace osteophytic lipping, no fractures. [facility] [address] [place], [place] [id number] IMAGING REPORT Signed PATIENT: STEVE LINARES ACCOUNT: [id number] : 1975 LOCATION: ER AGE: 45 SEX: F EXAM STATUS: PRE ER ORD. PHYSICIAN: KEIRY CROWLEY DO REASON: lateral right knee pain radiating to anterior tibia mid shaft PROCEDURE: KNEE RIGHT 3V Right knee 3 views 04/24/2020. Reason for exam: Pain. No fracture or dislocation is seen. There is some narrowing of the medial and patellofemoral compartments. There is no apparent destructive process. IMPRESSION: Mild osteoarthritis. No apparent acute abnormality. Right tibia and fibula 2 views: No fracture or dislocation is seen. There is no apparent destructive process. IMPRESSION: No acute abnormality. Electronically signed by: Candida Chou Jr., MD (04/24/2020 9:10 AM) [facility] DICTATED and SIGNED BY: CANDIDA CHOU Jr, MD DATE: 04/24/20909.PATIENT: JOSH LINARESCOUNT: [id number] : 1975 LOCATION: [facility] MRI AGE: 45 SEX: F EXAM STATUS: REG CLI ORD. PHYSICIAN: ROS SIEGEL MD REASON: Right knee pain PROCEDURE: LOWER EXT JOINT WO RT EXAM: MRI RIGHT KNEE DATE: 05/11/2020 12:30 PM CLINICAL INDICATION: Right knee pain-generalized knee pain for 6 weeks COMPARISON: None. TECHNIQUE: Multiplanar, multisequence MRI of the right knee was performed without contrast. FINDINGS: Small knee joint effusion. No significant Wheeler's cyst. The ACL and PCL are intact. The MCL, fibular collateral ligament, biceps femoris and IT band are intact. The popliteus is normal in signal and morphology, intact. Extensor mechanism is intact. Mild lateral patellar tracking. Suprapatellar fat pad edema may be seen with anterior knee pain/impingement. Medial meniscus: Free edge blunting of the body segment medial meniscus consistent with radial tear. In addition there is a peripheral longitudinal tear of the posterior horn medial meniscus with small parameniscal cyst. Lateral meniscus: Intact Tricompartmental chondromalacia. Full-thickness cartilage defect medial patellar facet with subchondral edema extending into the apex. Chondral thinning medial compartment without discrete full-thickness defect. No fracture or osteonecrosis. IMPRESSION: 1. Right knee joint osteoarthritis, most prominent at the patellofemoral compartment. 2. Radial tear body segment medial meniscus and peripheral longitudinal tear posterior horn medial meniscus with small para meniscal cyst. 3. Mild suprapatellar fat pad edema may be seen with anterior knee pain/impingement. Electronically signed by: Kvng Warren MD (05/12/2020 8:28 AM) [id number] DICTATED and SIGNED BY: KVNG WARREN MD DATE: 05/12/2028 VTE Prophylaxis Ordered VTE Prophylaxis Devices: Yes VTE Pharmacological Prophylaxi: Yes Assessment/Plan Assessment/Plan She should continue attempts at weight loss and strengthening, and I may recommend physical therapy postoperatively to encourage her to remain active and maintain quadricep strength. Of given her a goal weight of 220 pounds but will take a long time to reach that. She has acute symptoms on the medial joint line, and a radial root tear of the meniscus along with the development of some osteoarthritis. At age 45 and with these combination of findings the morbid obesity, the meniscus tear, the mechanical sharp pains medially, I do recommend arthroscopic meniscectomy. Removing the painful medial meniscus tear will give her quite a bit of relief but not relieve all of the pain and I explained she needs to continue weight loss and strengthening, and ultimately in 5 to 10 years may require knee replacement surgery. She needs to be at a healthier weight to consider knee replacement surgery. She stated understanding of all of this and d esires to proceed. We discussed potential risks of arthroscopic surgery, including risks of bleeding, infection, progressive arthritis, blood clots, or other potential surgical or anesthetic complications. All of her questions were answered and she desires to proceed with surgery Justifications for Admission Other Justification ROS SIEGEL MD Sep 19, 2020 11:55
[2020-09-19] MEDS ORDERED: FAMOTIDINE 20 MG/2 ML VIAL ONE (12:19)
[2020-09-19] MEDS ORDERED: fentaNYL PF VIAL 100 MCG/2 ML VIAL ONE ×2 (12:20→13:19)
[2020-09-19] MEDS ORDERED: SEVOFLURANE 61 TO 120 MINUTES. IH ONE (13:00)
--- NOTE | 2020-09-19 13:10 | PDOC4 ---
Operative Note Operative Note Date of Procedure: September 19, 2020 Preoperative Diagnosis: right knee medial meniscus tear Postoperative Diagnosis: complex tear medial meniscus, current injury, right knee, initial encounter, S83.231A Procedures Performed: right knee arthroscopy, surgical, with meniscectomy, MEDIAL, including meniscal shaving, including debridement/shaving of articular cartilage (chondroplasty) CPT 24482 Surgeon: Ros Guadarrama MD Merchandising Lead: CARMINE Candelario Anesthesia: General Estimated Blood Loss: 5 mL Specimens: none Drains: none Complications: none Tourniquet time: 27 minutes at 350 mm Hg Indications for Procedure: The patient is a 45-year-old with right knee pain, unrelieved with nonoperative treatment. Exam and MRI are consistent with a posterior root radial medial meniscus tear. We talked about the risks and benefits of proceeding with an arthroscopic procedure. We talked about potential risks of ongoing pain, progressive arthritis, bleeding, infection, blood clots, or other potential surgical or anesthetic complications. All of the patient's questions about surgery were answered and they desired to proceed. Written consent was obtained. Description of Operation: The patient was identified in the preoperative holding area. The correct right knee was marked by me. The patient was taken to the operating room, where a general anesthetic was used. Preoperative antibiotics were given intravenously. A time-out procedure was performed. A tourniquet was placed on the upper thigh. Local anesthetic 20 mL of 0.25% bupivacaine was injected using sterile technique into the knee joint. The limb was prepared circumferentially with ChloraPrep solution and sterile waterproof arthroscopy drapes were applied. The limb was exsanguinated with an Esmarch bandage and the tourniquet was inflated. Lateral and medial arthroscopy portals were established. The medial meniscus showed a complex tear with a radial root component at the posterior horn. There was unstable soft and partially torn meniscus throughout the posterior one third of the meniscus. Basket forceps and the motorized shaver were used to perform meniscectomy, removing most of the posterior one third of the meniscus, and tapering the resection into the middle one third of the meniscus, removing soft and degenerative meniscus to prevent retear. 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 The lateral tibiofemoral joint showed a normal lateral meniscus, so no lateral meniscectomy was required.The lateral articular surfaces showed chondromalacia [place] grade I, so no chondroplasty was required. 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 The suprapatellar pouch, medial and lateral gutters were free of loose bodies. Copious irrigation was used to drain all meniscal and chondral fragments, and the knee was drained of fluid. The portals were closed with #3-0 Prolene interrupted sutures. Additional local anesthetic, 30 mL of 0.25% bupivacaine with epinephrine was injected. A bulky sterile dressing was applied and the tourniquet was released. Needle and sponge counts were correct and there were no apparent complications. ROS GUADARRAMA MD Sep 19, 2020 13:09
[2020-09-19] MEDS: fentaNYL PF VIAL 100 MCG/2 ML VIAL IVP PRN ×2 (13:21→13:30)
[2020-09-19] MEDS ORDERED: HYDR-2763 PO (13:35)
[2020-09-19] MEDS ORDERED: PROM25TA10 PO (13:37)
[2020-09-19] MEDS ORDERED: ASPI325T11 PO (13:38)
[2020-09-19] MEDS ORDERED: MORPHINE SULFATE 2 MG/ML VIAL. ONE (13:41)
[2020-09-19] MEDS: MORPHINE SULFATE 2 MG/ML VIAL. IVP PRN ×2 (13:43→13:57)
[2020-09-19] MEDS ORDERED: HYDROmorphone 2 MG/ML VIAL ONE (14:11)
[2020-09-19 14:23] VITALS: BP 140/70
[2020-09-19] MEDS ORDERED: HYDROcodone/APAP 5/325MG 1 TAB TABLET ONE (14:38)
[2020-09-19] MEDS ORDERED: HYDROcodone/APAP 5/325MG 1 TAB TABLET PO ONE (15:15)
== END 2020-09-19 14:56 | disposition home or self-care (01) ==
LOC: SURG 10:57
PROVIDERS: ATTEND Orthopaedic Surgery
DX: S83.231A Complex tear of medial meniscus, current injury, right knee, initial encounter (principal); M94.261 Chondromalacia, right knee; E78.00 Pure hypercholesterolemia, unspecified; I10 Essential (primary) hypertension; K21.9 Gastro-esophageal reflux disease without esophagitis; M19.90 Unspecified osteoarthritis, unspecified site; F41.9 Anxiety disorder, unspecified; G47.33 Obstructive sleep apnea (adult) (pediatric); Z90.710 Acquired absence of both cervix and uterus; Z98.51 Tubal ligation status; Z98.890 Other specified postprocedural states; Z79.899 Other long term (current) drug therapy; Z79.82 Long term (current) use of aspirin; Z72.89 Other problems related to lifestyle; Z88.8 Allergy status to other drugs, medicaments and biological substances; Z82.49 Family history of ischemic heart disease and other diseases of the circulatory system; X58.XXXA Exposure to other specified factors, initial encounter; Y93.89 Activity, other specified; Y92.89 Other specified places as the place of occurrence of the external cause; Y99.8 Other external cause status
CPT/HCPCS: 29881; J0171; J1100; J1170; J2250; J2270; J2405; J2704; J3010; J3490